=== PATIENT | female | born 2000 | race Caucasian/White ===

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

== ENCOUNTER → 2019-12-05 | Outpatient (CLI) | payer BC, SELFPAY ==
[2018-05-15 13:21] VITALS: BMI 24.0
[2019-12-05 19:00] LABS: Chlamydia Trachomatis by PCR Negative (Negative); Neisserai gonorrhoeae by PCR Negative (Negative); Probe Check PASS; Sample Adequacy Control PASS; Specimen Processing Control PASS
== END | disposition home or self-care (01) ==
PROVIDERS: PCP Family Medicine; Visit Provider Obstetrics & Gynecology
DX: Z32.01 Encounter for pregnancy test, result positive (principal)
CPT/HCPCS: 87491; 87591

== ENCOUNTER → 2019-12-26 10:12 | Outpatient (CLI) | payer MEDICAID, SELFPAY ==
[2018-05-15 13:21] VITALS: BMI 24.0
[2019-12-26 11:04] LABS: Absolute Lymphocyte Count 1.68 X10^3/uL (0.83-4.51); Absolute Neutrophil Count 5.3 X10^3/uL (2.0-7.7); Basophil# 0.02 X10^3/uL; Basophil% 0.3 % (0-1); Eosinophil# 0.01 X10^3/uL; Eosinophils% 0.1 % (0-5); Hematocrit 36.7 % (37-47); Hemoglobin 11.9 g/dL (12.0-15.0); Lymphocyte # 1.68 X10^3/ul (4.0); Lymphocyte % 22.1 % (19-41); Mean Corp Hgb Conc 32.4 g/dL (32-36); Mean Corpuscular Volume 89.3 fL (81-99); Mean Platelet Vol. 11.1 fl (6.2-12.0); Monocyte% 7.9 % (0-10); NRBC Flagged by Analyzer 0 % (0-5); Neutrophil # 5.28 X10^3/uL (2.7-7.7); Neutrophil % 69.3 % (47-70); Platelet Count 208 K/mm3 (150-450); RBC Distribution Width CV 13.2 % (11.6-14.6); RBC Distribution Width SD 42.7 fl (35.1-43.9); Red Blood Count 4.11 M/mm3 (4.2-5.4); White Blood Count 7.6 K/mm3 (4.4-11.0)
[2019-12-26 11:12] LABS: Color, Urine Yellow (Yellow); Glucose, Dipstick Normal (Normal); Ketone-Dipstick Negative (Negative); Leukocyte Esterase-Dipstick 25 /ul (Negative); Nitrite-Dipstick Negative (Negative); Occult Blood-Urine Negative /ul (Negative); Protein-Dipstick Negative (Negative); Specific Gravity, Urine 1.015 (1.002-1.030); Urine Bilirubin Dipstick Negative (Negative); Urine Clarity Sl. Cloudy (Clear); Urine Urobilinogen Normal (Normal); Urine pH 6.5 (5.0 - 8.0)
[2019-12-26 11:45] LABS: Amphetamine Urine VISTA NEGATIVE (<1000 ng/mL); Barbiturate Urine VISTA NEGATIVE (< 200 ng/mL); Benzodiazepine Urine VISTA NEGATIVE (< 200 ng/mL); Cocaine Urine VISTA NEGATIVE (< 300 ng/mL); Ecstacy Urine VISTA NEGATIVE (< 500 ng/mL); Methadone Urine VISTA NEGATIVE (< 300 ng/mL); PCP Urine VISTA NEGATIVE (< 25 ng/mL); THC Urine VISTA NEGATIVE (< 50 ng/mL); Vista UDS pH Range 6
[2019-12-26 11:48] LABS: Thyroid Stim Hormone (TSH) 1.42 uIU/mL (0.358-3.74)
[2019-12-26 12:17] LABS: HIV - WCH Non-Reactive (Nonreactive); Hepatitis B Surface Antigen Non-Reactive (Nonreactive); Hepatitis C Antibody Non-Reactive (Nonreactive)
[2019-12-27 03:25] LABS: Prenatal RPR NONREACTIVE (NONREACTIVE)
== END ==
PROVIDERS: PCP Family Medicine; Visit Provider Obstetrics & Gynecology
DX: Z34.81 Encounter for supervision of other normal pregnancy, first trimester (principal)
CPT/HCPCS: 36415; 80307; 81002; 84443; 85025; 86703; 86762; 86803; 87340

== ENCOUNTER → 2020-04-28 10:08 | Outpatient (CLI) | payer MEDICAID, SELFPAY ==
[2018-05-15 13:21] VITALS: BMI 24.0
[2020-04-28 11:05] LABS: Hemoglobin 11.9 g/dL (12.0-15.0); Mean Corp Hgb Conc 33.1 g/dL (32-36); Mean Corpuscular Hgb 29.3 pg (27.0-32.0); Mean Corpuscular Volume 88.7 fL (81-99); Platelet Count 214 K/mm3 (150-450); RBC Distribution Width SD 42.1 fl (35.1-43.9); Red Blood Count 4.06 M/mm3 (4.2-5.4); White Blood Count 9.5 K/mm3 (4.4-11.0)
[2020-04-28 11:20] LABS: Glucose Challenge Gest 1H 50g 105 mg/dL (70-140)
== END ==
PROVIDERS: PCP Family Medicine; Visit Provider Obstetrics & Gynecology
DX: Z00.00 Encounter for general adult medical examination without abnormal findings (principal)
CPT/HCPCS: 36415; 82950; 85027

== ENCOUNTER 2020-04-30 06:42 | Observation (INO) | payer BC, MEDICAID, SELFPAY ==
[2018-05-15 13:21] VITALS: BMI 24.0
[2020-04-30] VITALS (7 sets, daily range): BP systolic 111–126; BP diastolic 57–65; PULSE 79–87; TEMP 36.2–36.6; O2SAT 80–98; BMI 33.3
[2020-04-30 03:32] LABS: Color, Urine Yellow (Yellow); Glucose, Dipstick Normal (Normal); Ketone-Dipstick 50 mg/dl (Negative); Leukocyte Esterase-Dipstick 500 /ul (Negative); Nitrite-Dipstick Positive (Negative); Occult Blood-Urine 250 /ul (Negative); Protein-Dipstick 100 mg/dl (Negative); Specific Gravity, Urine 1.025 (1.002-1.030); Urine Bilirubin Dipstick Negative (Negative); Urine Clarity Cloudy (Clear); Urine Urobilinogen Normal (Normal)
[2020-04-30] MEDS: Lactated Ringers 1,000 ML 999 ML IV (04:15)
[2020-04-30 04:42] LABS: Absolute Lymphocyte Count 1.06 X10^3/uL (0.83-4.51); Absolute Neutrophil Count 14.8 X10^3/uL (2.0-7.7); Basophil# 0.01 X10^3/uL; Basophil% 0.1 % (0-1); Hematocrit 32.4 % (37-47); Lymphocyte # 1.06 X10^3/ul (4.0); Lymphocyte % 6.3 % (19-41); Mean Corpuscular Hgb 29.9 pg (27.0-32.0); Monocyte# 0.77 X10^3/uL; Monocyte% 4.6 % (0-10); NRBC Flagged by Analyzer 0 % (0-5); Neutrophil # 14.83 X10^3/uL (2.7-7.7); Neutrophil % 88.5 % (47-70); Platelet Count 200 K/mm3 (150-450); RBC Distribution Width CV 12.9 % (11.6-14.6); RBC Distribution Width SD 41.9 fl (35.1-43.9); Red Blood Count 3.68 M/mm3 (4.2-5.4); White Blood Count 16.8 K/mm3 (4.4-11.0)
[2020-04-30] MEDS: Acetaminophen 500 MG Tablet 1000 MG PO ×2 (05:25→15:48)
--- NOTE | 2020-04-30 06:42 | PCM.HPOB.BLA ---
History and Physical Date of Admission: 04/30/20 HPI: 19 yo , MIGUE 07/26/20 by LMP, admitted for pyelonephritis. Pt had originally come to triage for low back pain. She was found to have right CVA tenderness and +UA. Denies LOF, VB, contractions. +FM. Denies YANG, vision change, chest pain, dyspnea. This is complicated by: obesity Obstetrical History Past Medical History Denies Medications PNV Past Surgical History Denies Social History Tobacco use: Former Alcohol use: denies Illicit drug use: denies Labs Blood type: O Pos Rubella: Immune Hep B: Neg HIV: Neg RPR: nonreactive 1 hour GTT: wnl GBS: unk Allergies NKDA Review of Systems General: alert and oriented HEENT: denies change of vision Heart/lungs: denies CP, SOB GI: denies nausea, vomiting, dysuria, diarrhea MSK: denies calf pain, tenderness Physical Exam Vital Signs Pulse BP Pulse Ox 04/30/20 02:36 82 126/65 H 97 General: a&o x3, NAD HEENT: normocephalic, atraumatic Cardio: no JVD Resp: no increased work in breathing Abdomen: soft, gravid, nontender. Right CVA tenderness Extremities: no edema CE: deferred FHT: 150/mod destin/+accel/no decel [place]: quiet Labs Laboratory Results - last 24 hr 04/30/20 04/30/20 04/30/20 03:20 04:30 04:30 WBC 16.8 H RBC 3.68 L Hgb 11.0 L Hct 32.4 L MCV 88.0 MCH 29.9 MCHC 34.0 RDW Std Deviation 41.9 RDW Coeff of [place] 12.9 Plt Count 200 MPV 11.0 Immature Gran % (Auto) 0.500 Neut % (Auto) 88.5 H Lymph % (Auto) 6.3 L [place] % (Auto) 4.6 Eos % (Auto) 0.0 Baso % (Auto) 0.1 Absolute Neuts (auto) 14.8 H Absolute Lymphs (auto) 1.06 Nucleated RBC % 0 Urine Color Yellow Urine Clarity Cloudy Urine pH 6.0 Ur Specific [place] 1.025 Urine Protein 100 H Urine Glucose (UA) Normal Urine Ketones 50 H Urine Occult Blood 250 H Urine Nitrite Positive H Urine Bilirubin Negative Urine Urobilinogen Normal Ur Leukocyte Esterase 500 H Blood Type O POSITIVE Antibody Screen NEGATIVE Assessment & Plan 19 yo , MIGUE 07/26/20 by LMP, admitted for pyelonephritis. This is complicated by: obesity. Stable. -Pyelonephritis based on positive UA and CVA tenderness on exam. Slight leukocytosis as well. Patient has been afebrile. -Admit to labor and delivery -Rocephin 2gm q24 hours -Urine culture sent -IL LR bolus, then HLIV -NST q shift -Tylenol 1gm q6hr PRN pain Diet: Regular IVFs: HLIV DVT PPx: SCDs, ambulate Dispo: Home with oral medication once CVA tenderness resolved and/or 24 hours afebrile
[2020-05-01 00:03] VITALS: BP 108/57; PULSE 74; TEMP 36.2
[2020-05-01 04:26] VITALS: BP 103/51; PULSE 68
[2020-05-01 08:23] VITALS: BP 113/55; PULSE 71
--- NOTE | 2020-05-01 09:59 | PCM.PN.OB ---
Subjective: Back pain has improved. Patient overall feels much improved. Denies fevers, chills, nausea vomiting, chest pain, shortness of breath, headache, visual changes, right upper quadrant pain. - Physical Exam Vitals/I&O's: Vital Signs Temp Pulse BP Pulse Ox 97.2 F L 71 113/55 L 98 05/01/20 00:03 05/01/20 08:23 05/01/20 08:23 04/30/20 19:53 Weight: 213 lb Body Mass Index (BMI) 33.3 Intake and Output for Last 24 Hours 04/29/20 04/30/20 05/01/20 23:59 23:59 23:59 Intake Total 1050 / 1050 50 / 50 Balance 1050 / 1050 50 / 50 General: Alert, Oriented x3, Cooperative, No apparent distress, Well developed, Well nourished HEENT: Atraumatic, PERRLA Oral: Moist Mucosa Neck: Supple Lungs: Clear to auscultation, Normal air movement, No rhonchi, No wheeze, No rales Cardiovascular: Regular rate, Regular Rhythm, Normal S1, Normal S2, No murmurs Abdomen: Bowel Sounds Present, Soft, Non Tender, Gravid, - - Negative for CVA tenderness bilaterally Extremities: No clubbing, No cyanosis, No edema Lymphatic: No Cervical, Supraclavicular, or Inguinal Adenopathy Neurological: Neuro grossly intact Psych/Mental Status: Normal Affect, Appropriate, Alert and oriented to time, place, person, mood and affect Current Medications Al Hydroxide/Mg Hydroxide (Mag Hydrox/Al Hydrox/Simeth 30 Ml Udc) 30 ml PO Q4H PRN PRN PRN Reason: INDIGESTION Ceftriaxone Sodium 2 gm/ (Sodium Chloride) 50 mls @ 100 mls/hr IV Q24H CATARINO Last Infusion: 05/01/20 05:15 Dose: Infused Documented by: Sodium Chloride () 250 mls @ 15 mls/hr IV .[id number] PRN PRN Reason: Saline Flush Medical Necessity - Tobacco Use Smoking Status: Never smoker Assessment/Plan Hospital day 2 with pyelonephritis status post Rocephin 2 g daily. Patient symptoms improved, now asymptomatic. No CVA tenderness, no fevers or chills, vital signs stable. Will discharge home on p.o. Keflex. For Macrobid suppression therapy through the rest of . Discussed signs and symptoms of UTI and pyelonephritis. Okay to discharge home today
--- NOTE | 2020-05-01 10:03 | DCINST_ITS ---
You will use the following diet at home:: No restrictions, Regular Discharge Activity: Return to Normal Activity, No Restrictions, May Drive, May Shower May resume sexual activity in: No Restrictions Weight Bearing Status: Weight bearing as tolerated Call your doctor if your incision/area has: Foul Smelling Discharge Call your doctor if you observe: Fever of 101 or Higher, Shortness of breath, Chest pain Allergies/Adverse Reactions: Allergies No Known Allergies Allergy (Verified 05/15/18 13:21) Medications to take at Discharge Prenatabs FA 1 tab PO DAILY 04/30/20 Cephalexin [Keflex] 500 mg PO Q6 7 Days #28 cap 05/01/20 Nitrofurantoin Macrocrystals [Macrobid] 100 mg PO DAILY #30 cap 05/01/20 The following prescriptions were given: Cephalexin [Keflex] 500 mg PO Q6 7 Days #28 cap Transmission Status: Pending to [facility] Nitrofurantoin Macrocrystals [Macrobid] 100 mg PO DAILY #30 cap Transmission Status: Pending to [facility] Primary Care Physician: Eleazar Atwood MD [Primary Care Provider] - Test Results: Test results from this visit will be discussed in further detail at your follow- up appointment, if applicable. Please Follow Up With: Clyde Sinclair MD - Or follow-up with the provider she would like in our office When: 1 to 2 weeks
== END 2020-05-01 10:30 | disposition home or self-care (01) ==
LOC: WPOUT 09:57 → WP 09:57
PROVIDERS: Admitting Provider Student in an Organized Health Care Education/Training Program; PCP Family Medicine; Visit Provider Student in an Organized Health Care Education/Training Program
DX: O23.00 Infections of kidney in pregnancy, unspecified trimester (principal); Z3A.00 Weeks of gestation of pregnancy not specified; O99.210 Obesity complicating pregnancy, unspecified trimester; E66.9 Obesity, unspecified
CPT/HCPCS: 96361; 96365; 96366; 36415; 59025; 59050; 81002; 85025; 86850; 86900; 86901; 87077; 87086; 87088; 87186; 99218; J7120; G0378; J0696

== ENCOUNTER 2020-05-22 02:31 | Outpatient (CLI) | payer BC, MEDICAID, SELFPAY ==
[2020-04-30 02:50] VITALS: BMI 33.3
[2020-05-22 02:51] VITALS: BMI 32.8
[2020-05-22 02:55] LABS: Color, Urine Yellow (Yellow); Glucose, Dipstick Normal (Normal); Ketone-Dipstick 50 mg/dl (Negative); Leukocyte Esterase-Dipstick 100 /ul (Negative); Nitrite-Dipstick Negative (Negative); Occult Blood-Urine 10 /ul (Negative); Protein-Dipstick 30 mg/dl (Negative); Specific Gravity, Urine 1.015 (1.002-1.030); Urine Bilirubin Dipstick Negative (Negative); Urine Clarity Sl. Cloudy (Clear); Urine Urobilinogen Normal (Normal); Urine pH 6.5 (5.0 - 8.0)
[2020-05-22 02:57] VITALS: BP 118/68; PULSE 88; TEMP 36.6; O2SAT 97
[2020-05-22 03:45] VITALS: PULSE 80; O2SAT 98
[2020-05-22 03:54] LABS: Absolute Lymphocyte Count 2.71 X10^3/uL (0.83-4.51); Basophil# 0.03 X10^3/uL; Basophil% 0.2 % (0-1); Eosinophil# 0.04 X10^3/uL; Eosinophils% 0.3 % (0-5); Hematocrit 34.6 % (37-47); Hemoglobin 11.6 g/dL (12.0-15.0); Lymphocyte # 2.71 X10^3/ul (4.0); Lymphocyte % 18.1 % (19-41); Mean Corp Hgb Conc 33.5 g/dL (32-36); Mean Corpuscular Hgb 29.5 pg (27.0-32.0); Mean Platelet Vol. 11.4 fl (6.2-12.0); Monocyte% 7.4 % (0-10); NRBC Flagged by Analyzer 0 % (0-5); Neutrophil % 73.6 % (47-70); Platelet Count 194 K/mm3 (150-450); RBC Distribution Width CV 13.1 % (11.6-14.6); Red Blood Count 3.93 M/mm3 (4.2-5.4); White Blood Count 14.9 K/mm3 (4.4-11.0)
[2020-05-22 04:07] LABS: Creatinine, Serum 0.56 mg/dL (0.55-1.02); EST Glomerular Filtration Rate 145 mL/min (>60); Est Glom Filt Rate - Afr Amer 176 mL/min (>60)
[2020-05-22] MEDS: 0.9% Saline Lock 10 ML Syringe IV (04:12)
[2020-05-22] MEDS: Lactated Ringers 1,000 ML 125 ML IV (05:08)
[2020-05-22 07:28] VITALS: BP 113/60; PULSE 80; TEMP 36.7; O2SAT 97
--- NOTE | 2020-05-22 09:14 | OB.TRI.HP_ITS ---
History of Present Illness Date of Service: 05/22/20 Was patient seen by the physician?: Yes Reason For Visit: Right Flank Pain Date of Service: 05/22/20 Final MIGUE: 07/26/20 Final MIGUE Source: US <20 weeks Gestational age: 30 Weeks and 5 Days History of Present Illness: 30+ week intrauterine with right flank pain. Previously in the hospital for several days for right pyelonephritis and on daily Macrobid at home. Started having right flank pain today with some crampiness and presented to the hospital. Some blood noted in the urine. Allergies No Known Allergies Allergy (Verified 05/22/20 02:52) Laboratory Studies: Laboratory Tests 05/22/20 05/22/20 05/22/20 Range/Units 03:40 03:40 02:45 WBC 14.9 H (4.4-11.0) K/mm3 RBC 3.93 L (4.2-5.4) M/mm3 Hgb 11.6 L (12.0-15.0) g/dL Hct 34.6 L (37-47) % MCV 88.0 (81-99) fL MCH 29.5 (27.0-32.0) pg MCHC 33.5 (32-36) g/dL RDW Std Deviation 42.0 (35.1-43.9) fl RDW Coeff of [place] 13.1 (11.6-14.6) % Plt Count 194 (150-450) K/mm3 MPV 11.4 (6.2-12.0) fl Immature Gran % (Auto) 0.400 (0.0-0.9) % Neut % (Auto) 73.6 H (47-70) % Lymph % (Auto) 18.1 L (19-41) % [place] % (Auto) 7.4 (0-10) % Eos % (Auto) 0.3 (0-5) % Baso % (Auto) 0.2 (0-1) % Absolute Neuts (auto) 11.0 H (2.0-7.7) X10^3/uL Absolute Lymphs (auto) 2.71 (0.83-4.51) X10^3/uL Nucleated RBC % 0 (0-5) % Creatinine 0.56 (0.55-1.02) mg/dL Estim Creat Clear Calc 160.30 ml/min Est GFR (MDRD) Af Amer 176 (>60) mL/min Est GFR (MDRD) Non-Af 145 (>60) mL/min Urine Color Yellow (Yellow) Urine Clarity Sl. Cloudy (Clear) Urine pH 6.5 (5.0 - 8.0) Ur Specific [place] 1.015 (1.002-1.030) Urine Protein 30 H (Negative) mg/dl Urine Glucose (UA) Normal (Normal) mg/dl Urine Ketones 50 H (Negative) mg/dl Urine Occult Blood 10 H (Negative) /ul Urine Nitrite Negative (Negative) Urine Bilirubin Negative (Negative) mg/dL Urine Urobilinogen Normal (Normal) mg/dl Ur Leukocyte Esterase 100 H (Negative) /ul Physical Exam Vitals: Vital Signs Temp Pulse BP Pulse Ox 98.0 F 80 113/60 97 05/22/20 07:28 12 07:28 05/22/20 07:28 05/22/20 07:28 NST - FHR Rate Baby A NST Reactive:: Yes FHR Category:: Category I Impression/Plan 30+ week intrauterine with recurrent but early right pyelonephritis. Unasyn IV given overnight and pain has resolved. CBC okay but white count slightly elevated. However, no fevers. Given this will release to home on oral Keflex for 1 week and then continue Keflex until the end of daily. Patient was instructed to return with recurrent flank pain or contractions. heart tones are reactive and reassuring. Minimal uterine activity noted on the monitor. Follow-up in the office next Tuesday as scheduled.
== END 2020-05-22 09:47 | disposition home or self-care (01) ==
LOC: WPOUT 02:39 → WP 02:42
PROVIDERS: PCP Family Medicine; Referring Provider Obstetrics & Gynecology; Visit Provider Obstetrics & Gynecology
DX: O26.893 Other specified pregnancy related conditions, third trimester (principal); R10.9 Unspecified abdominal pain; Z3A.30 30 weeks gestation of pregnancy
CPT/HCPCS: 96365; 96366; 96375; 36415; 59025; 59050; 81002; 82565; 85025; 99218; J7120; A4216; G0378; J0295

== ENCOUNTER 2020-06-21 22:55 | Outpatient (CLI) | payer BC, MEDICAID, SELFPAY ==
[2020-06-21 23:05] VITALS: BMI 35.6
[2020-06-21 23:14] VITALS: BP 140/77; PULSE 100; TEMP 36.8; O2SAT 98
[2020-06-21 23:15] VITALS: PULSE 99; O2SAT 98
[2020-06-21 23:35] LABS: Mucous, Urine 0 SEEN /hpf (<or=2+)
[2020-06-21 23:53] LABS: Color, Urine Yellow (Yellow); Glucose, Dipstick 50 mg/dl (Normal); Ketone-Dipstick 5 mg/dl (Negative); Leukocyte Esterase-Dipstick 500 /ul (Negative); Nitrite-Dipstick Positive (Negative); Occult Blood-Urine 250 /ul (Negative); Protein-Dipstick 100 mg/dl (Negative); Urine Bilirubin Dipstick Negative (Negative); Urine Clarity Cloudy (Clear); Urine Urobilinogen Normal (Normal)
[2020-06-22 00:01] LABS: Bacteria 1+ /hpf (None Seen); Red Blood Cells-Urine 50-100 SEEN /hpf (0-5); Squamous Epithelial Cells - UA 0-5 SEEN /hpf (5-10); White Blood Cells 25-50 SEEN /hpf (0-5)
[2020-06-22] MEDS: Ceftriaxone 1 GM/50 ML BAG IV (00:27)
--- NOTE | 2020-06-26 08:52 | OB.TRI.NOTE ---
History of Present Illness Date of Service: 06/22/20 Was patient seen by the physician?: No Reason For Visit: R/O KIDNEY INFECTION Date of Service: 06/22/20 Final MIGUE: 07/26/20 Final MIGUE Source: US <20 weeks Gestational age: 35 Weeks and 5 Days Allergies No Known Allergies Allergy (Verified 06/21/20 23:08) Laboratory Studies: Laboratory Tests 06/21/20 Range/Units 23:30 Urine Color Yellow (Yellow) Urine Clarity Cloudy (Clear) Urine pH 6.0 (5.0 - 8.0) Ur Specific Metcalfe 1.020 (1.002-1.030) Urine Protein 100 H (Negative) mg/dl Urine Glucose (UA) 50 H (Normal) mg/dl Urine Ketones 5 H (Negative) mg/dl Urine Occult Blood 250 H (Negative) /ul Urine Nitrite Positive H (Negative) Urine Bilirubin Negative (Negative) mg/dL Urine Urobilinogen Normal (Normal) mg/dl Ur Leukocyte Esterase 500 H (Negative) /ul Urine RBC 50-100 SEEN (0-5) /hpf Urine WBC 25-50 SEEN (0-5) /hpf Ur Squamous Epith Cells 0-5 SEEN (5-10) /hpf Urine Bacteria 1+ (None Seen) /hpf Urine Mucus 0 SEEN (<or=2+) /hpf Physical Exam Vitals: Vital Signs Temp Pulse BP Pulse Ox 98.2 F 99 140/77 H 98 06/21/20 23:14 06/21/20 23:15 06/21/20 23:14 06/21/20 23:15 NST - FHR Rate Baby A Baseline: 130 Variability:: Moderate Accelerations:: 15 x 15 Decelerations:: None NST Reactive:: Yes Uterine Activity:: few contractions Impression/Plan Patient arrives with back pain, history of pyelonephritis in this . Afebrile, UA appears positive for UTI. Based on the overall stability will treat with Rocephin IV and outpatient Keflex treatment with Macrobid suppression. To discharge home and follow-up in office, send urine culture for sensitivities.
== END 2020-06-22 01:10 | disposition home or self-care (01) ==
LOC: WPOUT 23:03 → WP 23:04
PROVIDERS: PCP Family Medicine; Visit Provider Obstetrics & Gynecology
DX: O23.43 Unspecified infection of urinary tract in pregnancy, third trimester (principal); M54.9 Dorsalgia, unspecified; Z3A.35 35 weeks gestation of pregnancy
CPT/HCPCS: 96365; 59025; 59050; 81001; 87077; 87086; 87088; 87186; 99218; G0378

== ENCOUNTER → 2020-07-02 16:03 | Outpatient (CLI) | payer BC, MEDICAID, SELFPAY ==
[2020-06-21 23:05] VITALS: BMI 35.6
== END ==
PROVIDERS: PCP Family Medicine; Visit Provider Obstetrics & Gynecology
DX: Z36.85 Encounter for antenatal screening for Streptococcus B (principal)
CPT/HCPCS: 87081

== ENCOUNTER 2020-07-26 21:25 | Outpatient (CLI) | payer BC, MEDICAID, SELFPAY ==
[2020-07-26 21:48] VITALS: BP 132/83; PULSE 81; PULSE 87; TEMP 36.7; O2SAT 98
[2020-07-26 22:06] VITALS: BMI 37.3
[2020-07-26 22:19] LABS: ROM Internal Control Test YES-OK TO RESULT pt. (Internal QC); ROM Patient Test Negative (Negative)
--- NOTE | 2020-07-26 23:05 | OB.TRI.NOTE ---
- Problem List (1) 40 weeks gestation of Status: Acute (2) False labor Status: Acute History of Present Illness Date of Service: 07/26/20 Was patient seen by the physician?: No Reason For Visit: RULE OUT LABOR Final MIGUE: 07/26/20 Final MIGUE Source: US <20 weeks Gestational age: 40 Weeks and 0 Days History of Present Illness: 20yo G1 @ 40wga with c/o contractions and leaking of fluid. Allergies No Known Allergies Allergy (Verified 07/26/20 22:07) Laboratory Studies: Laboratory Tests 07/26/20 Range/Units 21:55 Vag Amniotic Fld Detect Negative (Negative) Physical Exam Vitals: Vital Signs Temp Pulse BP Pulse Ox 98.0 F 87 132/83 H 98 07/26/20 21:48 07/26/20 21:48 07/26/20 21:48 07/26/20 21:48 Cervix Dilation (cm): 2 - per RN exam Eligio Sanz Station: -3 Effacement (%): 50 NST - FHR Rate Baby A Baseline: 130 Variability:: Moderate Accelerations:: 15 x 15 Decelerations:: None NST Reactive:: Yes FHR Category:: Category I Uterine Activity:: 1-2/ Impression/Plan 20yo G1 @ 40wga, Cat I FHR -Cervix non laboring and ROM plus neg -d/c home -f/u next week as scheduled
== END 2020-07-26 22:50 | disposition home or self-care (01) ==
LOC: WPOUT 21:36 → WP 21:37
PROVIDERS: PCP Family Medicine; Visit Provider Obstetrics & Gynecology
DX: O47.1 False labor at or after 37 completed weeks of gestation (principal); Z3A.40 40 weeks gestation of pregnancy
CPT/HCPCS: 59025; 59050; 84112; 99218; G0378

== ENCOUNTER 2020-07-27 13:20 | Inpatient (IN) | payer BC, MEDICAID, SELFPAY ==
[2020-07-26 22:06] VITALS: BMI 37.3
[2020-07-27] VITALS (26 sets, daily range): BP systolic 113–138; BP diastolic 54–95; PULSE 73–111; TEMP 36.2–37.1; O2SAT 90–99; BMI 36.9
[2020-07-27 13:31] LABS: ROM Internal Control Test YES-OK TO RESULT pt. (Internal QC); ROM Patient Test POSITIVE (Negative)
--- NOTE | 2020-07-27 14:06 | PCM.HP.OB ---
- Problem List (1) Rupture of membranes with clear amniotic fluid Status: Acute (2) 40 weeks gestation of Status: Acute History Date of Admission: 04/30/20 Final MIGUE: 07/26/20 Final MIGUE Source: US <20 weeks Gestational age: 40 Weeks and 1 Days History of this : This is a 20 year-old, G [1], P [], at 40 1/7 weeks gestational age by LMP c/w first trimester US presents with leaking of fluid. issues: -hx back injury in 2016 -Pyelonephritis at 28wga - on Keflex ppx Medical History: Medical History (Last Updated 07/27/20 @ 14:[address] Cortney Sanford MD) Pyelonephritis N12 Allergies No Known Allergies Allergy (Verified 07/27/20 13:12) Home Medications: Home Medications Prenatabs FA 1 tab PO DAILY 04/30/20 Cephalexin [Keflex] 500 mg PO 07/27/20 Smoking Status: Former smoker Alcohol: None Number of Fetus(es): 1 NST - FHR Rate Baby A Baseline: 140 Accelerations:: 15 x 15 Decelerations:: None NST Reactive:: Yes FHR Category:: Category I Uterine Activity:: 2-3/10 History Past Pregnancies: Past Pregnancies Delivery Date Name GA/ Weeks Outcome Route Wt Sex Labor Length Anesthesia Delivery Location Provider FOB Labs: Antepartum Flow Sheet Highlights: [facility] Jul 14 39 234 128/80 tr - 38 V 2+ 65 -2 CM Jul 14 38 229 128/72 - - 38 V [facility] Jun 13 37 229 108/62 - - 37 [facility] Jun 13 36 226 126/80 tr ne 36 V ft 50 -2 [facility] Jun 14 34 222 128/70 tr ne 34 [facility] May 14 32 220 116/68 - - 32 May 14 30 216 104/70 tr - 30 - W Mar 17 23 210 110/80 tr - 24 W Feb 14 19 206 120/60 - - 20 [facility] Feb 4 16 202 106/64 tr - [facility] Jan 3 13 198 110/80 [facility] Dec 14 9 199 110/74 tr - Mom's Microbiology 07/27/20 14:20 Mucosa - Nose SARS-CoV-2 Antigen (Rapid) - Final Mom's Problem List Problem Status Onset Code 40 weeks gestation of Acute Z3A.40 Rupture of membranes with clear amniotic fluid Acute Mom's Labs & Results 07/27/20 07/27/20 07/27/20 13:10 14:15 14:15 WBC 12.7 H RBC 4.20 Hgb 12.1 Hct 35.7 L MCV 85.0 MCH 28.8 MCHC 33.9 RDW Std Deviation 41.6 RDW Coeff of Destin 13.3 Plt Count 201 MPV 11.4 Immature Gran % (Auto) 0.500 Neut % (Auto) 80.1 H Lymph % (Auto) 13.0 L Mcpherson % (Auto) 6.3 Eos % (Auto) 0.0 Baso % (Auto) 0.1 Absolute Neuts (auto) 10.2 H Absolute Lymphs (auto) 1.65 Nucleated RBC % 0 Vag Amniotic Fld Detect POSITIVE H Blood Type O POSITIVE Antibody Screen NEGATIVE Course Did the patient receive Yes care? Labs Blood Type: O RH: POSITIVE RPR/VDRL/Syphilis Nonreactive Rubella status Immune HbSAg Negative Date Done: 12/26/19 Chlamydia Negative Gonorrhea Negative HIV/AIDS Non-Reactive Group B Strep: Negative Current Obstetrical History Gestational Diabetes No Incompetent Cervix No Infertility No IUGR No Macrosomia No Hypertension/Pre-eclampsia No Placenta Previa/Abruption No PTL/PROM No Uterine anomaly No Oligohydramnios No Polyhydramnios No Multiple gestation No Past Medical History Asthma No Diabetes No Hypertension No Heart disease No Mitral valve prolapse No Neurologic/Seizure disorder/ No Migraines Kidney disease No Liver disease No Varicosities No Clotting disorders/Hx of DVT No Thyroid Dysfunction No Other medical diseases No Psychiatric disorders No Major trauma No Abnormal PAP smear No Sleep apnea No Mammogram in the last 2 years No Social History Marital Status: SINGLE Alleged father Ricardo Rogers Hx Smoking Yes Smoking Status Former smoker Expected Delivery Method: Spontaneous Vaginal Number of Visits: 12 Physical Exam Vitals: Vital Signs Temp Pulse BP Pulse Ox 98.4 F 92 136/76 H 98 07/27/20 13:24 07/27/20 13:25 07/27/20 13:25 07/27/20 13:25 General: Alert, Oriented x3, Cooperative, No apparent distress HEENT: Atraumatic, Normocephalic Cardiovascular: Regular rate, Regular Rhythm, Normal S1, Normal S2 Lungs: Clear to auscultation, Normal air movement Abdomen: Soft, Non Tender, Non-Distended, Gravid Extremities:: Other - trace LE edeam, no calf tenderness Neurological: Neuro grossly intact Estimated gestational size: Appropriate for gestational size Presentation: - - US - cephalic, OA, back maternal right Cervix Dilation (cm): 2 Station: -3 Effacement (%): 65 - per RN exam Assessment/Plan All Active Problems (Last Updated 07/27/20 @ 14:[address] Cortney Sanford MD) 40 weeks gestation of (Acute) Rupture of membranes with clear amniotic fluid (Acute) This is a 20 year-old, G [1], P [], at 40 1/7 weeks gestational age with SROM, Cat I FHR -Expectant management -GBS neg -Maternal and statuses reassuring
[2020-07-27] MEDS: Lactated Ringers 1,000 ML 50 ML IV (14:15)
[2020-07-27 14:28] LABS: Absolute Lymphocyte Count 1.65 X10^3/uL (0.83-4.51); Absolute Neutrophil Count 10.2 X10^3/uL (2.0-7.7); Basophil# 0.01 X10^3/uL; Basophil% 0.1 % (0-1); Hematocrit 35.7 % (37-47); Hemoglobin 12.1 g/dL (12.0-15.0); Lymphocyte # 1.65 X10^3/ul (4.0); Mean Corp Hgb Conc 33.9 g/dL (32-36); Mean Corpuscular Hgb 28.8 pg (27.0-32.0); Mean Platelet Vol. 11.4 fl (6.2-12.0); Monocyte% 6.3 % (0-10); NRBC Flagged by Analyzer 0 % (0-5); Neutrophil # 10.19 X10^3/uL (2.7-7.7); Neutrophil % 80.1 % (47-70); Platelet Count 201 K/mm3 (150-450); RBC Distribution Width CV 13.3 % (11.6-14.6); RBC Distribution Width SD 41.6 fl (35.1-43.9); White Blood Count 12.7 K/mm3 (4.4-11.0)
[2020-07-27] MEDS: Oxytocin 30 units/NS 500 ml 30 UNITS/500 ML IV.SOLN IV (16:38)
[2020-07-27] MEDS: Lactated Ringers 500 ML 999 ML IV ×2 (19:14→23:42)
[2020-07-27] MEDS: fentaNYL-bupivacaine (epidural) 100 ML BAG EPIDURAL ×2 (19:39→23:22)
[2020-07-27] MEDS: Lactated Ringers 1,000 ML 200 ML IV (23:21)
[2020-07-28] VITALS (29 sets, daily range): BP systolic 100–136; BP diastolic 52–89; PULSE 64–120; RESP 14–20; TEMP 36.2–37.2; O2SAT 95–100
[2020-07-28] MEDS: Lactated Ringers 500 ML 999 ML IV (01:34)
[2020-07-28] MEDS: Ondansetron 4 MG/2 ML Vial IV (01:51)
[2020-07-28] MEDS: fentaNYL-bupivacaine (epidural) 100 ML BAG EPIDURAL (04:13)
[2020-07-28] MEDS: Lactated Ringers 1,000 ML 200 ML IV (04:14)
--- NOTE | 2020-07-28 04:38 | PCM.PN.BLA ---
Progress Note LABOR PROGRESS NOTE Reports frustration with pushing and feels that she can't do to this any longer. She has not been able to maintain alternative positioning due to fatigue despite nursing support. She has intermittent pain in the back with contractions. Per nursing staff is refusing to push. AVSS GEN - NAD, AAO x 3 FHR 150, minimal variability, no accelerations, no decelerations TOCO 3/10 min SVE deferred A/P: 20yo G1 @ 40 2/7 wga, Cat II FHR -Discussed with patient repeat epidural placement to assist with her painfulness. Have attempted positional maneuvers as well as comfort measures - pt with improved pain in hands and knees but unable to tolerate positioning due to fatigue. Also offered section as alternative. Pt aware however that she does not meet medical indication for section. We discussed related risks including but not limited to pain, bleeding complications, infection, injury to abdominal organs, VTE, scarring, uterine scarring resulting in increased risk for uterine rupture and placenta accreta d/o in future with associated heightened risk for bleeding and hysterectomy. We discussed section anesthesia as well. I recommended she consider having the epidural replaced, however, she declines and desires surgical delivery. Will proceed with section. Pt and partner given opportunity to ask questions and questions answered to their satisfaction. STROKE Vital Signs/Narrative: Vital Signs Temp Pulse BP Pulse Ox 07/28/20 03:46 98.8 F 64 131/62 H 07/28/20 02:52 120 H 98 07/28/20 02:47 92 98 07/28/20 02:42 87 98 07/28/20 02:37 87 98 07/28/20 02:32 98 96 07/28/20 02:27 89 100 07/28/20 02:11 98.6 F 99 133/89 H 07/28/20 00:50 98.6 F 104 H 100 07/28/20 00:49 129/85 H
[2020-07-28] MEDS: Sodium Citrate/Citric Acid 30 ML UDC PO (04:48)
[2020-07-28] MEDS: Cefazolin 2 GM in 0.9% Normal Saline 100 ML IV (05:02)
--- NOTE | 2020-07-28 06:27 | PCM.OPRPT ---
Problem List (1) 40 weeks gestation of Status: Acute (2) delivery delivered Status: Acute Report of Operation Date of Procedure: 07/28/20 Pre-Operative Diagnosis: 1. 40 2/7 weeks gestation. 2. Second stage labor with maternal exhaustion. 3. Prolonged rupture of membranes Post-Operative Diagnosis: same Surgery/Procedure Performed:: Primary low transverse section Description of Surgical Findings:: normal bilateral tubes and ovaries, uterus normal Delivery Classification: HELENA Final MIGUE: 07/26/20 Gestational age: 40 Weeks and 2 Days doctor who attended delivery (if requested by OB): Tho Perez skein tier: Gregory Flower Type of Anesthesia:: Epidural Date of Procedure: 07/28/20 Indications: 20yo G1 @ 40 2/7 weeks gestational age who presented the previous day with rupture of membranes in latent labor. She was later augmented with pitocin and progressed to fully dilated and zero station. She pushed with good maternal effort however reports severe back pain despite epidural and redosing. She had pushed approximately 2 hours in all and reported maternal exhaustion requesting section. She declined epidural replacement. r/b/i/a were reviewed and patient opted to proceed with section. Indications for : - - Maternal exhaustion/Maternal request Description of Procedure: The patient was taken to the operating room and spinal analgesia was administered. She is placed in a dorsal supine position with left lateral tilt. The perineum and abdomen were prepped and draped in sterile fashion. And the spinal was found to be adequate. A Pfannenstiel incision was made using a scalpel and brought down to incise the subcutaneous tissue and rectus fascia at the midline. Subcutaneous tissue was bluntly dissected off the fascia laterally. The fascial incision was dissected laterally and cephalad using curved Suresh scissors. The superior leaflet of the rectus fascia was grasped using Nataly clamps and bluntly dissected and sharply dissected from the underlying rectus muscle. In a similar fashion the inferior rectus fascia was dissected from the underlying muscle. The rectus muscles were bluntly at the midline. The peritoneum was identified and entered [sharply]. The bladder blade was placed into the abdomen and the vesicouterine peritoneal fold identified. The fold was incised and a bladder flap created. Bladder blade was then repositioned to the abdomen. A low transverse hysterotomy was made using the [Metzenbaum scissors] to level of the membranes. The hysterotomy was extended bluntly cephalad and caudad. The membranes were then ruptured revealing meconium stained fluid. The head was impacted. Assistance from below was performed and the head elevated and brought to the level of the hysterotomy. The infant delivered revealing a [female] . The cord was doubly clamped and cut after 30 seconds. The was passed to awaiting [nursery personnel]. The placenta was [expressed] from the uterus and appeared intact on inspection. The uterus was exteriorized and cleared of debris. The hysterotomy was then repaired using 0 Vicryl running lock suture including a right extension abutting the round ligament. A second imbricating layer was also placed for additional hemostasis. Additional sutures were placed to close the extension with hemostasis attained. The bladder blade was removed. The anterior and posterior cul-de-sac was cleared of debris. The peritoneum and rectus muscles were reapproximated using 2-0 Vicryl running suture. The rectus fascia was closed using 0 Stratafix. The subcutaneous tissue was reapproximated using 2-0 Vicryl. The skin was closed using 4-0 Monocryl subcuticularly by the TELEHEALTH COORDINATOR under my supervision. A Mepilex occlusive dressing was placed over the incision. The fundus was firm. The patient was then transferred to the recovery room without complication. Sponge, instrument, and needle counts were correct ?2. Amniotic Membrane Rupture Type: Spontaneous Amniotic Fluid Description: Lightly stained meconium Placenta Disposition: [facility] Drain: Shields to straight drain Fluids Replaced: 1000 ml Cord Entanglement: None Nuchal Cord Compression: Without compression Cord Vessel Description: 3 Vessels Esitmated Blood Loss (ml): 995 Infant Gender: Female (1 minute): 7 (5 minute): 9 Delayed cord clamping: No Antibiotic Given: Ancef 2 grams IV x1, Zithromax 500 mg/5 mL X1 Pt instructed on risks of surgery: Bleeding, Anesthesia Risks, Infection, Injury to surrounding structure(s) including bowel and bladder Complications: - - Right Lateral extension of hysterotomy - Admit VTE Documentation VTE Present on Admission: No VTE Mechan Device Prophylaxis: SCD's VTE Pharm Prophylaxis ordered?: Yes
[2020-07-28] MEDS: Oxytocin 30 units/NS 500 ml 30 UNITS/500 ML IV.SOLN 167 UNITS IV (06:56)
[2020-07-28] MEDS: Lactated Ringers 1,000 ML 100 ML IV (10:06)
[2020-07-28] MEDS: Acetaminophen 500 MG Tablet 1000 MG PO ×2 (10:53→18:39)
[2020-07-28] MEDS: Senna/Docusate Sodium 1 Tablet PO (10:53)
[2020-07-28] MEDS: Heparin Injection (Vial) 5,000 UNIT/ML VIAL 5000 UNIT SC (12:12)
[2020-07-28] MEDS: Prenatal Vits Tablet 1 TABLET PO (12:12)
[2020-07-28] MEDS: Ketorolac 30 MG/ML Syringe IV ×2 (13:10→18:40)
[2020-07-28] MEDS: 0.9% Saline Lock 10 ML Syringe IV ×2 (13:11→18:41)
[2020-07-29] MEDS: 0.9% Saline Lock 10 ML Syringe IV ×2 (00:48→06:48)
[2020-07-29] MEDS: Heparin Injection (Vial) 5,000 UNIT/ML VIAL 5000 UNIT SC ×3 (00:48→23:37)
[2020-07-29] MEDS: Ketorolac 30 MG/ML Syringe IV ×2 (00:48→06:48)
[2020-07-29] MEDS: Acetaminophen 500 MG Tablet 1000 MG PO ×3 (02:38→18:33)
[2020-07-29 04:23] VITALS: BP 111/56; PULSE 88; RESP 16; TEMP 36.4
--- NOTE | 2020-07-29 04:29 | NURSING ---
Patient has been unable to void more than 25-50ml at a time overnight for this RN. Did void once earlier, but patient has denied feeling like she needs to urinate. Bladder was mildly distended upon last belly check. Decided to bladder scan patient for a result of 250ml. Patient states she doesn't feel like she is going to be able to void on own and agreed to straight catheterization at this time. Straight cath'd patient for result of 500ml. Encouraged patient to increase PO intake and try to void on own in 2-3 hours.
[2020-07-29 05:32] LABS: Hematocrit 28.5 % (37-47); Hemoglobin 9.6 g/dL (12.0-15.0); Mean Corp Hgb Conc 33.7 g/dL (32-36); Mean Corpuscular Volume 86.1 fL (81-99); Mean Platelet Vol. 10.7 fl (6.2-12.0); Platelet Count 156 K/mm3 (150-450); RBC Distribution Width CV 13.9 % (11.6-14.6); RBC Distribution Width SD 43.8 fl (35.1-43.9); Red Blood Count 3.31 M/mm3 (4.2-5.4); White Blood Count 17.6 K/mm3 (4.4-11.0)
--- NOTE | 2020-07-29 08:05 | PCM.PN.OB ---
Patient Problems: Active and Suspected Problems (Last Updated 07/27/20 @ 14:[address] Cortney Sanford MD) delivery delivered (Acute) 40 weeks gestation of (Acute) Rupture of membranes with clear amniotic fluid (Acute) Subjective: Postop day 1: Feeling well, pain controlled with medication. Breast-feeding. Voided minimally once after removal of catheter, was straight cathed x1 overnight. - Physical Exam Vitals/I&O's: Vital Signs Temp Pulse Resp BP Pulse Ox 97.6 F L 88 16 111/56 L 97 07/29/20 04:23 07/29/20 04:23 07/29/20 04:23 07/29/20 04:23 07/28/20 20:38 Oxygen Delivery Method Room Air Weight: 107.048 kg Body Mass Index (BMI) 36.9 Intake and Output for Last 24 Hours 07/27/20 07/28/20 07/29/20 23:59 23:59 23:59 Intake Total 1571.87 / 1571.87 4838.33 / 4838.33 Output Total 2375 / 2375 525 / 525 Balance 1571.87 / 1571.87 2463.33 / 2463.33 -525 / -525 General: Alert, Oriented x3, No apparent distress HEENT: Atraumatic, Normocephalic Neck: Supple Lungs: Normal air movement Cardiovascular: Regular rate Abdomen: Soft - Dressing clean dry, uterus 2 cm below umbilicus Extremities: Edema - +2 pedal edema Neurological: Cranial nerves II-XII grossly intact Psych/Mental Status: Normal Affect, Appropriate Microbiology Past 72 Hours 07/27/20 14:20 Mucosa - Nose SARS-CoV-2 Antigen (Rapid) - Final Laboratory Results 07/29/20 05:25: WBC 17.6 H, RBC 3.31 L, Hgb 9.6 L, Hct 28.5 L, MCV 86.1, MCH 29.0, MCHC 33.7, RDW Std Deviation 43.8, RDW Coeff of Destin 13.9, Plt Count 156, MPV 10.7 Current Medications Acetaminophen (Acetaminophen 500 Mg Tablet) 1,000 mg PO Q8H [facility] Last Admin: 07/29/20 02:38 Dose: 1,000 mg Documented by: Bisacodyl (Bisacodyl 10 Mg Suppository) 10 mg RECTAL UD PRN PRN Reason: If no BM Heparin Sodium (Porcine) (Heparin Injection (Vial) 5,000 Unit/Ml Vial) 5,000 unit SC Q12@0000,1200 [facility] Last Admin: 07/29/20 00:48 Dose: 5,000 unit Documented by: Hydrocortisone (Hydrocortisone 2.5% Crm) 1 applic TOPICAL TID PRN PRN; Protocol PRN Reason: Discomfort Ibuprofen (Ibuprofen 600 Mg Tablet) 600 mg PO Q6H [facility] Methylergonovine Maleate (Methylergonovine 0.2 Mg/Ml Ampul) 0.2 mg IM X1 PRN PRN Reason: Uterine Atony Naloxone HCl (Naloxone 0.4 Mg/Ml Syringe) 0.02 mg IV Q1M PRN PRN Reason: RR <10 and pt unresponsive Ondansetron HCl (Ondansetron 4 Mg/2 Ml Vial) 4 mg IV Q4H PRN PRN PRN Reason: Nausea Oxycodone HCl (Oxycodone 5 Mg Tablet) 5 - 10 mg PO Q4H PRN PRN PRN Reason: Pain Score 4-10 Multivit/Folic Acid/Iron ( Vits Tablet) 1 tablet PO DAILY@1200 [facility] Last Admin: 07/28/20 12:12 Dose: 1 tablet Documented by: Prochlorperazine Edisylate (Prochlorperazine 10 Mg/2 Ml Vial) 10 mg IV Q6H PRN PRN PRN Reason: NAUSEA Senna/Docusate Sodium (Senna/Docusate Sodium 1 Tablet) 0 tablet PO DAILY [facility] Last Admin: 07/28/20 10:53 Dose: 1 tablet Documented by: Simethicone (Simethicone 80 Mg Tablet) 80 mg PO HS PRN PRN Reason: Indigestion/stomach pain Sodium Chloride (0.9% Saline Lock 10 Ml Syringe) 5 - 15 ml IV UD PRN PRN Reason: SALINE FLUSH Last Admin: 07/29/20 06:48 Dose: 10 ml Documented by: Medical Necessity - Tobacco Use Smoking Status: Former smoker Assessment/Plan All Active Problems (Last Updated 07/27/20 @ 14:[address] Cortney Sanford MD) delivery delivered (Acute) 40 weeks gestation of (Acute) Rupture of membranes with clear amniotic fluid (Acute) 20-year-old postop day 1 status post primary section, elective maternal exhaustion. Acute blood loss anemia secondary to surgery. Iron supplement at home. Breast-feeding. Monitor voiding today. Likely home tomorrow.
[2020-07-29 08:09] VITALS: BP 124/74; PULSE 96; RESP 18; TEMP 36.3; O2SAT 98
[2020-07-29] MEDS: Senna/Docusate Sodium 1 Tablet PO (10:12)
[2020-07-29] MEDS: Ibuprofen 600 MG Tablet PO ×2 (12:29→18:34)
[2020-07-29] MEDS: Prenatal Vits Tablet 1 TABLET PO (12:29)
[2020-07-29 14:55] VITALS: BP 114/68; PULSE 85; RESP 16; O2SAT 96
[2020-07-29 21:16] VITALS: BP 122/74; PULSE 80; RESP 16; TEMP 36.2; O2SAT 97
[2020-07-30] MEDS: Acetaminophen 500 MG Tablet 1000 MG PO (02:39)
[2020-07-30] MEDS: Ibuprofen 600 MG Tablet PO ×2 (02:40→08:20)
[2020-07-30 02:41] VITALS: BP 140/81; PULSE 103; RESP 16; TEMP 37.4
[2020-07-30] MEDS: Senna/Docusate Sodium 1 Tablet PO (08:20)
[2020-07-30 08:23] VITALS: BP 109/61; PULSE 85; RESP 16; TEMP 36.3; O2SAT 97
--- NOTE | 2020-07-30 09:10 | PCM.PN.OB ---
Patient Problems: Active and Suspected Problems (Last Updated 07/27/20 @ 14:[address] Cortney Sanford MD) delivery delivered (Acute) 40 weeks gestation of (Acute) Rupture of membranes with clear amniotic fluid (Acute) Subjective: Patient without complaints. Tolerating diet well. Positive flatus. Ready to go home. Objective: Wound is clean, dry, intact with Mepilex dressing in place. Good urine output. - Physical Exam Vitals/I&O's: Vital Signs Temp Pulse Resp BP Pulse Ox 97.4 F L 85 16 109/61 97 07/30/20 08:23 07/30/20 08:23 07/30/20 08:23 07/30/20 08:23 07/30/20 08:23 Oxygen Delivery Method Room Air Weight: 236 lb Body Mass Index (BMI) 36.9 Intake and Output for Last 24 Hours 07/28/20 07/29/20 07/30/20 23:59 23:59 23:59 Intake Total 4838.33 / 4838.33 Output Total 2375 / 2375 1225 / 1225 Balance 2463.33 / 2463.33 -1225 / -1225 Microbiology Past 72 Hours 07/27/20 14:20 Mucosa - Nose SARS-CoV-2 Antigen (Rapid) - Final Current Medications Acetaminophen (Acetaminophen 500 Mg Tablet) 1,000 mg PO Q8H [facility] Last Admin: 07/30/20 02:39 Dose: 1,000 mg Documented by: Bisacodyl (Bisacodyl 10 Mg Suppository) 10 mg RECTAL UD PRN PRN Reason: If no BM Heparin Sodium (Porcine) (Heparin Injection (Vial) 5,000 Unit/Ml Vial) 5,000 unit SC Q12@0000,1200 [facility] Last Admin: 07/29/20 23:37 Dose: 5,000 unit Documented by: Hydrocortisone (Hydrocortisone 2.5% Crm) 1 applic TOPICAL TID PRN PRN; Protocol PRN Reason: Discomfort Ibuprofen (Ibuprofen 600 Mg Tablet) 600 mg PO Q6H [facility] Last Admin: 07/30/20 08:20 Dose: 600 mg Documented by: Methylergonovine Maleate (Methylergonovine 0.2 Mg/Ml Ampul) 0.2 mg IM X1 PRN PRN Reason: Uterine Atony Naloxone HCl (Naloxone 0.4 Mg/Ml Syringe) 0.02 mg IV Q1M PRN PRN Reason: RR <10 and pt unresponsive Ondansetron HCl (Ondansetron 4 Mg/2 Ml Vial) 4 mg IV Q4H PRN PRN PRN Reason: Nausea Oxycodone HCl (Oxycodone 5 Mg Tablet) 5 - 10 mg PO Q4H PRN PRN PRN Reason: Pain Score 4-10 Multivit/Folic Acid/Iron ( Vits Tablet) 1 tablet PO DAILY@1200 [facility] Last Admin: 07/29/20 12:29 Dose: 1 tablet Documented by: Prochlorperazine Edisylate (Prochlorperazine 10 Mg/2 Ml Vial) 10 mg IV Q6H PRN PRN PRN Reason: NAUSEA Senna/Docusate Sodium (Senna/Docusate Sodium 1 Tablet) 0 tablet PO DAILY [facility] Last Admin: 07/30/20 08:20 Dose: 1 tablet Documented by: Simethicone (Simethicone 80 Mg Tablet) 80 mg PO HS PRN PRN Reason: Indigestion/stomach pain Sodium Chloride (0.9% Saline Lock 10 Ml Syringe) 5 - 15 ml IV UD PRN PRN Reason: SALINE FLUSH Last Admin: 07/29/20 06:48 Dose: 10 ml Documented by: Medical Necessity - Tobacco Use Smoking Status: Former smoker Assessment/Plan All Active Problems (Last Updated 07/27/20 @ 14:[address] Cortney Sanford MD) delivery delivered (Acute) 40 weeks gestation of (Acute) Rupture of membranes with clear amniotic fluid (Acute) Doing well postoperative day #2 status post section. Will release to home with routine instructions.
--- NOTE | 2020-07-30 09:12 | DS.PCM_ITS ---
Discharge Summary Date of Admission: 07/27/20 Date of Discharge: 07/30/20 Summary: Admission diagnosis: Term Intrauterine with Rupture of Membranes Discharge diagnosis: Term Intrauterine with Rupture Membranes, Failure to Progress Procedure: Primary Low Transverse Cervical Section HPI: Uneventful care except for pyelonephritis during . PE: Unremarkable. Hospital Course: The patient is a 20 year old G 1 P 0 who presented to and D at 40+ weeks gestation. She subsequently had a primary for failure to progress. Postoperatively she did well demonstrating a stable HGB on POD 1 and bowel fxn by POD 2 at which time it was felt she was ready for discharge. Homegoing Instruction: She was instructed not to drive for several days or if using narcotic pain medication, not to put anything in the vagina for 4 weeks, not to lift >25 lbs for 6 weeks and to call the office for an appointment in 2 weeks and 6 weeks. Discharge Medications: She was given a prescription for Oxycodone and Colace and also plans to use Aleve or Motrin or Tylenol at home as needed for pain and constipation. Patient Problems: Active and Suspected Problems (Last Updated 07/27/20 @ 14:[address] Cortney Sanford MD) delivery delivered (Acute) 40 weeks gestation of (Acute) Rupture of membranes with clear amniotic fluid (Acute) - Physical Exam Vitals/I&O's: Vital Signs Temp Pulse Resp BP Pulse Ox 97.4 F L 85 16 109/61 97 07/30/20 08:23 07/30/20 08:23 07/30/20 08:23 07/30/20 08:23 07/30/20 08:23 Oxygen Delivery Method Room Air Weight: 236 lb Body Mass Index (BMI) 36.9 Intake and Output for Last 24 Hours 07/28/20 07/29/20 07/30/20 23:59 23:59 23:59 Intake Total 4838.33 / 4838.33 Output Total 2375 / 2375 1225 / 1225 Balance 2463.33 / 2463.33 -1225 / -1225 Microbiology Past 72 Hours 07/27/20 14:20 Mucosa - Nose SARS-CoV-2 Antigen (Rapid) - Final Current Medications Acetaminophen (Acetaminophen 500 Mg Tablet) 1,000 mg PO Q8H CATARINO Last Admin: 07/30/20 02:39 Dose: 1,000 mg Documented by: Bisacodyl (Bisacodyl 10 Mg Suppository) 10 mg RECTAL UD PRN PRN Reason: If no BM Heparin Sodium (Porcine) (Heparin Injection (Vial) 5,000 Unit/Ml Vial) 5,000 unit SC Q12@0000,1200 COUNTS INCLUDE 234 BEDS AT THE [facility] Last Admin: 07/29/20 23:37 Dose: 5,000 unit Documented by: Hydrocortisone (Hydrocortisone 2.5% Crm) 1 applic TOPICAL TID PRN PRN; Protocol PRN Reason: Discomfort Ibuprofen (Ibuprofen 600 Mg Tablet) 600 mg PO Q6H COUNTS INCLUDE 234 BEDS AT THE [facility] Last Admin: 07/30/20 08:20 Dose: 600 mg Documented by: Methylergonovine Maleate (Methylergonovine 0.2 Mg/Ml Ampul) 0.2 mg IM X1 PRN PRN Reason: Uterine Atony Naloxone HCl (Naloxone 0.4 Mg/Ml Syringe) 0.02 mg IV Q1M PRN PRN Reason: RR <10 and pt unresponsive Ondansetron HCl (Ondansetron 4 Mg/2 Ml Vial) 4 mg IV Q4H PRN PRN PRN Reason: Nausea Oxycodone HCl (Oxycodone 5 Mg Tablet) 5 - 10 mg PO Q4H PRN PRN PRN Reason: Pain Score 4-10 Multivit/Folic Acid/Iron ( Vits Tablet) 1 tablet PO DAILY@1200 COUNTS INCLUDE 234 BEDS AT THE [facility] Last Admin: 07/29/20 12:29 Dose: 1 tablet Documented by: Prochlorperazine Edisylate (Prochlorperazine 10 Mg/2 Ml Vial) 10 mg IV Q6H PRN PRN PRN Reason: NAUSEA Senna/Docusate Sodium (Senna/Docusate Sodium 1 Tablet) 0 tablet PO DAILY COUNTS INCLUDE 234 BEDS AT THE [facility] Last Admin: 07/30/20 08:20 Dose: 1 tablet Documented by: Simethicone (Simethicone 80 Mg Tablet) 80 mg PO PCHS PRN PRN Reason: Indigestion/stomach pain Sodium Chloride (0.9% Saline Lock 10 Ml Syringe) 5 - 15 ml IV UD PRN PRN Reason: SALINE FLUSH Last Admin: 07/29/20 06:48 Dose: 10 ml Documented by:
--- NOTE | 2020-07-30 09:46 | DCINST_ITS ---
Discharge Diet: No Restrictions Discharge Activity: May not drive while taking narcotic pain medications., May Shower, May Take a Tub Bath May resume sexual activity in: 4-6 weeks Lifting Restrictions: 20 pounds Additional Activity Instructions:: Nothing in the vagina for 4-6 weeks. You may return to work/school in 6 weeks. Call your doctor if your incision/area has: Continuous Slow Oozing, Sudden Increased Bleeding, Increased Pain/ Swelling, Increased Redness, Foul Smelling Discharge Call your doctor if you observe: Fever of 101 or Higher, Inability to urinate, Inability to have a bowel movement, Using more than one pad per hour Additional Dressing/Incision Instructions:: Use Ibuprophen or Tylenol for breakthrough pain. Use stool softener as needed for constipation. Additional Instructions: If you experience any of the following, contact your healthcare provider. * Bleeding that soaks a pad every hour for 2 hours * Fever 100.4 or higher * Unrelieved incision or abdominal pain * Swelling, redness, discharge or bleeding from your incision or episiotomy site * Your incision begins to separate * Problems urinating (including inability to urinate or burning while urinating). * Visual changes * Severe headache * Flu-like symptoms * Pain or redness in one of both of your breasts * Pain, warmth, tenderness or swelling in your legs, especially the calf area * Frequent nausea and vomiting * Symptoms of depression or anxiety If you experience any of the following, call 911 or go to the nearest Emergency Room. * Chest pain * Problems breathing * Seizure activity * Partial or complete paralysis of a body part, slurred speech, weakness or drooping of the face, or a sudden inability to walk or hold your balance Allergies/Adverse Reactions: Allergies No Known Allergies Allergy (Verified 07/27/20 13:12) Medications to take at Discharge Prenatabs FA 1 tab PO DAILY 04/30/20 Follow-Up: Call to make an appointment with your doctor for an incision check in 1-2 weeks. You will also need a 6 week post- follow up appointment. Test results from this visit will be discussed in further detail at your follow- up appointment, if applicable. Please Follow Up With: Kenny Jones MD - [phone] When: Call to make an appointment for an incision check in 2 weeks. Primary Care Physician: Eleazar Atwood MD [Primary Care Provider] -
== END 2020-07-30 11:10 | disposition home or self-care (01) | DRG 788 ==
LOC: WPOUT 13:34 → WP 13:34
PROVIDERS: Admitting Provider Obstetrics & Gynecology; PCP Family Medicine; Referring Provider Obstetrics & Gynecology; Visit Provider Obstetrics & Gynecology
DX: O75.81 Maternal exhaustion complicating labor and delivery (principal); O62.2 Other uterine inertia; Z37.0 Single live birth; O42.92 Full-term premature rupture of membranes, unspecified as to length of time between rupture and onset of labor; Z3A.40 40 weeks gestation of pregnancy; Z87.891 Personal history of nicotine dependence; O77.0 Labor and delivery complicated by meconium in amniotic fluid
CPT/HCPCS: 59025; 59050; 84112; 85025; 85027; 86850; 86900; 86901; 87426; 99218; 99251; J7120; A4216; G0378; G0463; J2405

== ENCOUNTER → 2020-09-10 15:30 | Outpatient (CLI) | payer BC, MEDICAID, SELFPAY ==
[2020-07-27 13:13] VITALS: BMI 36.9
== END ==
PROVIDERS: PCP Family Medicine; Visit Provider Obstetrics & Gynecology
DX: Z12.4 Encounter for screening for malignant neoplasm of cervix (principal)
CPT/HCPCS: 88175; G0145

== ENCOUNTER → 2021-04-24 16:24 | Outpatient (CLI) | payer BC, MEDICAID, SELFPAY ==
[2021-04-24 17:34] LABS: Progesterone Level 9.37 ng/mL (See Comment)
== END ==
PROVIDERS: PCP Family Medicine; Visit Provider Obstetrics & Gynecology
DX: N91.5 Oligomenorrhea, unspecified (principal)
CPT/HCPCS: 36415; 84144

== ENCOUNTER → 2021-04-30 06:34 | Outpatient (CLI) | payer BC, MEDICAID, SELFPAY ==
[2021-04-30 08:13] LABS: Glucose 75GTT - 30 minutes 166 mg/dL (100-160)
[2021-04-30 08:29] LABS: Glucose 75GTT - Fasting 93 mg/dL (70-99)
[2021-04-30 08:36] LABS: Glucose 75GTT - 60 minutes 194 mg/dL (100-160)
[2021-04-30 08:53] LABS: Insulin 75GTT - 30 MIN 46.1 mU/L (Not Estab.)
[2021-04-30 08:54] LABS: Insulin 75GTT - Fasting 8.9 mU/L (2.6-37.6)
[2021-04-30 10:28] LABS: Glucose 75GTT - 120 minutes 81 mg/dL (70-140)
[2021-04-30 10:30] LABS: Insulin 75GTT - 120 min 32.2 mU/L (Not Estab.)
== END ==
PROVIDERS: PCP Family Medicine; Referring Provider Obstetrics & Gynecology; Visit Provider Obstetrics & Gynecology
DX: R73.09 Other abnormal glucose (principal); Z13.1 Encounter for screening for diabetes mellitus
CPT/HCPCS: 36415; 82951; 82952; 83525

== ENCOUNTER → 2021-05-04 07:10 | Outpatient (CLI) | payer BC, MEDICAID, SELFPAY ==
[2021-05-04 08:11] LABS: Estradiol 44.5 pg/mL; Follicle Stimulating Hormone 8.7 mIU/mL; Free T3 3.1 pg/mL (2.18-3.98); Prolactin 11.5 ng/mL; T4 Free Direct 0.94 ng/dL (0.76-1.46)
[2021-05-04 09:07] LABS: T3 Total - Triiodothyronine 1.17 ng/mL (0.6-1.81)
[2021-05-10 08:01] LABS: 17-Hydroxyprogesterone 27 ng/dL (.)
[2021-05-10 12:46] LABS: Anti-Mullerian Hormone,Serum 4.29 ng/mL (.); Sex Hormone-binding Globulin 40.5 nmol/L (24.6-122.0)
== END ==
PROVIDERS: PCP Family Medicine; Referring Provider Obstetrics & Gynecology; Visit Provider Obstetrics & Gynecology
DX: E28.2 Polycystic ovarian syndrome (principal); E28.9 Ovarian dysfunction, unspecified; E03.9 Hypothyroidism, unspecified
CPT/HCPCS: 36415; 82533; 82627; 82670; 83001; 83498; 83516; 84146; 84270; 84403; 84439; 84443; 84480; 84481; 82626

== ENCOUNTER 2021-09-02 14:10 | Outpatient (CLI) | payer MEDICAID, SELFPAY ==
[2021-09-07 22:07] LABS: Chlamydia By Nucleic Acid AMP Negative (Negative)
[2021-09-08 09:14] LABS: Gonococcus By Nucleic Acid AMP Negative (Negative)
== END 2021-09-02 23:59 | disposition home or self-care (01) ==
LOC: LABSPEC 14:16
PROVIDERS: PCP Family Medicine; Visit Provider Obstetrics & Gynecology
DX: Z11.3 Encounter for screening for infections with a predominantly sexual mode of transmission (principal); Z12.4 Encounter for screening for malignant neoplasm of cervix
CPT/HCPCS: 87491; 87591; 88175; G0145

== ENCOUNTER 2021-09-23 14:02 | Outpatient (CLI) | payer MEDICAID, SELFPAY ==
[2021-09-23 15:38] LABS: Absolute Lymphocyte Count 2.09 X10^3/uL (0.83-4.51); Absolute Neutrophil Count 4.7 X10^3/uL (2.0-7.7); Basophil# 0.02 X10^3/uL; Basophil% 0.3 % (0-1); Eosinophil# 0.02 X10^3/uL; Eosinophils% 0.3 % (0-5); Hematocrit 35.5 % (37-47); Hemoglobin 11.9 g/dL (12.0-15.0); Lymphocyte # 2.09 X10^3/ul (0.83-4.51); Lymphocyte % 28.2 % (19-41); Mean Corp Hgb Conc 33.5 g/dL (32-36); Mean Corpuscular Hgb 28.5 pg (27.0-32.0); Mean Corpuscular Volume 85.1 fL (81-99); Mean Platelet Vol. 11.7 fl (6.2-12.0); Monocyte# 0.52 X10^3/uL; NRBC Flagged by Analyzer 0 % (0-5); Neutrophil # 4.74 X10^3/uL (2.7-7.7); Neutrophil % 63.9 % (47-70); Platelet Count 183 K/mm3 (150-450); RBC Distribution Width SD 43.7 fl (35.1-43.9); Red Blood Count 4.17 M/mm3 (4.2-5.4); White Blood Count 7.4 K/mm3 (4.4-11.0)
[2021-09-23 15:44] LABS: Color, Urine Yellow (Yellow); Glucose, Dipstick Normal (Normal); Ketone-Dipstick Negative (Negative); Leukocyte Esterase-Dipstick 500 /ul (Negative); Nitrite-Dipstick Negative (Negative); Occult Blood-Urine 10 /ul (Negative); Protein-Dipstick Negative (Negative); Urine Bilirubin Dipstick Negative (Negative); Urine Clarity Sl. Cloudy (Clear); Urine Urobilinogen Normal (Normal)
[2021-09-23 15:55] LABS: Thyroid Stim Hormone (TSH) 1.19 uIU/mL (0.358-3.74)
[2021-09-23 16:32] LABS: HIV - WCH Non-Reactive (Nonreactive); Hepatitis B Surface Antigen Non-Reactive (Nonreactive); Hepatitis C Antibody Non-Reactive (Nonreactive); Rubella IgG Reactive (Nonreactive); Syphilis Antibodies Non-reactive
[2021-09-23 16:43] LABS: Amphetamine Urine VISTA NEGATIVE (<1000 ng/mL); Barbiturate Urine VISTA NEGATIVE (< 200 ng/mL); Benzodiazepine Urine VISTA NEGATIVE (< 200 ng/mL); Cocaine Urine VISTA NEGATIVE (< 300 ng/mL); Ecstacy Urine VISTA NEGATIVE (< 500 ng/mL); Methadone Urine VISTA NEGATIVE (< 300 ng/mL); PCP Urine VISTA NEGATIVE (< 25 ng/mL); THC Urine VISTA NEGATIVE (< 50 ng/mL); Vista UDS pH Range 5
== END 2021-09-23 23:59 | disposition home or self-care (01) ==
LOC: WOBLAB 14:03
PROVIDERS: PCP Family Medicine; Visit Provider Obstetrics & Gynecology
DX: Z34.81 Encounter for supervision of other normal pregnancy, first trimester (principal)
CPT/HCPCS: 36415; 80307; 81002; 84443; 85025; 86703; 86762; 86780; 86803; 87077; 87086; 87088; 87340

== ENCOUNTER → 2021-12-29 | Outpatient (CLI) | payer MEDICAID, SELFPAY ==
[2021-12-29 14:17] LABS: Hematocrit 36.1 % (37-47); Hemoglobin 11.9 g/dL (12.0-15.0); Mean Corpuscular Hgb 30.1 pg (27.0-32.0); Mean Corpuscular Volume 91.2 fL (81-99); Mean Platelet Vol. 10.5 fl (6.2-12.0); Platelet Count 197 K/mm3 (150-450); RBC Distribution Width CV 13.2 % (11.6-14.6); RBC Distribution Width SD 43.9 fl (35.1-43.9); Red Blood Count 3.96 M/mm3 (4.2-5.4); White Blood Count 11.6 K/mm3 (4.4-11.0)
[2021-12-29 14:30] LABS: Glucose Challenge Gest 1H 50g 127 mg/dL (70-140)
== END | disposition home or self-care (01) ==
PROVIDERS: PCP Family Medicine; Visit Provider Student in an Organized Health Care Education/Training Program
DX: Z34.82 Encounter for supervision of other normal pregnancy, second trimester (principal)
CPT/HCPCS: 36415; 82950; 85027

== ENCOUNTER 2022-02-14 20:45 | Outpatient (CLI) | payer MEDICAID, SELFPAY ==
[2022-02-14 20:58] VITALS: BP 124/75; PULSE 83; TEMP 36.7; O2SAT 98
[2022-02-14 21:06] VITALS: BMI 30.8
[2022-02-14 21:26] LABS: Absolute Lymphocyte Count 2.48 X10^3/uL (0.83-4.51); Absolute Neutrophil Count 8.7 X10^3/uL (2.0-7.7); Basophil# 0.02 X10^3/uL; Basophil% 0.2 % (0-1); Eosinophils% 0.8 % (0-5); Hematocrit 33.9 % (37-47); Hemoglobin 11.6 g/dL (12.0-15.0); Lymphocyte # 2.48 X10^3/ul (0.83-4.51); Lymphocyte % 20.4 % (19-41); Mean Corp Hgb Conc 34.2 g/dL (32-36); Mean Corpuscular Hgb 30.4 pg (27.0-32.0); Mean Platelet Vol. 10.5 fl (6.2-12.0); Monocyte% 6.6 % (0-10); NRBC Flagged by Analyzer 0 % (0-5); Neutrophil # 8.71 X10^3/uL (2.7-7.7); Neutrophil % 71.8 % (47-70); Platelet Count 175 K/mm3 (150-450); RBC Distribution Width CV 13.2 % (11.6-14.6); Red Blood Count 3.81 M/mm3 (4.2-5.4); White Blood Count 12.1 K/mm3 (4.4-11.0)
[2022-02-14 21:28] LABS: Color, Urine Yellow (Yellow); Glucose, Dipstick Normal (Normal); Ketone-Dipstick Negative (Negative); Leukocyte Esterase-Dipstick 500 /ul (Negative); Nitrite-Dipstick Negative (Negative); Occult Blood-Urine 50 /ul (Negative); Protein-Dipstick 15 mg/dl (Negative); Urine Bilirubin Dipstick Negative (Negative); Urine Clarity Cloudy (Clear); Urine Urobilinogen Normal (Normal); Urine pH 6.5 (5.0 - 8.0)
[2022-02-14] MEDS: Lactated Ringers 1,000 ML 999 ML IV (21:55)
[2022-02-14] MEDS: Ceftriaxone 1 GM/50 ML BAG IV (22:12)
--- NOTE | 2022-02-14 22:47 | OB.TRI.HP_ITS ---
HPI - General General Date of Admission: 02/14/22 HPI Narrative DAKOTA DENSON, is a 21 F who presents with abdominal and back pain. Denies fevers chills, chest pain, shortness of breath PFSH [facility] Medical History (Updated 02/15/22 @ 07:[address] Clyde Sinclair MD) Pyelonephritis Home Medications Prenatabs FA 1 tab PO DAILY 04/30/20 [History Last Taken 02/13/22 21:00] nitrofurantoin monohydrate/macrocrystals 100 mg capsule (Macrobid) 100 mg PO DAILY 02/14/22 [History Last Taken 02/13/22 21:00] Allergy/AdvReac Type Severity Reaction Status Date / Time No Known Allergies Allergy Verified 02/14/22 21:06 Social History (Updated 05/16/18 @ 15:[address] Eliz Durán MD) Smoking Status: Former smoker History Elective abortions Hx Para 0 Spontaneous abortions Hx # Term Pregnancies Ectopic pregnancies Hx # Pregnancies Multiple births # of living children NST FHR Rate Baby A Baseline: 150 Variability:: Moderate Accelerations:: 15 x 15 Decelerations:: None Uterine Activity:: Quiet Assessment & Plan (1) : PLAN: Patient arrived with back pain and abdominal pain. Then noted urinary frequency. Urinalysis reveals signs of acute cystitis. Overall with negative fevers and chills, normal white blood cell count. 1 L LR bolus given. Along with 1 g of Rocephin. Discharge home to call office for appointment
== END 2022-02-14 23:55 | disposition home or self-care (01) ==
LOC: WPOUT 20:50 → WP 20:50
PROVIDERS: PCP Family Medicine; Visit Provider Obstetrics & Gynecology
DX: O23.10 Infections of bladder in pregnancy, unspecified trimester (principal); O99.891 Other specified diseases and conditions complicating pregnancy; N30.00 Acute cystitis without hematuria; M54.9 Dorsalgia, unspecified; R10.9 Unspecified abdominal pain; Z87.891 Personal history of nicotine dependence
CPT/HCPCS: 96365; 96366; 96367; 36415; 59025; 59050; 81002; 85025; 87086; 87088; 99218; J7120; G0378

== ENCOUNTER → 2022-03-09 | Outpatient (CLI) | payer MEDICAID, SELFPAY | END | disposition home or self-care (01) | LOC: LABSPEC 15:41 | PROVIDERS: PCP Family Medicine; Visit Provider Student in an Organized Health Care Education/Training Program | DX: Z87.440 Personal history of urinary (tract) infections (principal) | CPT/HCPCS: 87086; 87088 ==

== ENCOUNTER 2022-04-09 04:55 | Inpatient (IN) | payer MEDICAID, SELFPAY ==
[2022-04-09] VITALS (15 sets, daily range): BP systolic 98–114; BP diastolic 43–68; PULSE 61–92; RESP 16–20; TEMP 36.1–36.8; O2SAT 96–98; BMI 32.5
[2022-04-09] MEDS: Lactated Ringers 1,000 ML 999 ML IV (05:45)
[2022-04-09 06:21] LABS: Absolute Lymphocyte Count 2.24 X10^3/uL (0.83-4.51); Absolute Neutrophil Count 6.2 X10^3/uL (2.0-7.7); Basophil# 0.01 X10^3/uL; Basophil% 0.1 % (0-1); Eosinophil# 0.03 X10^3/uL; Eosinophils% 0.3 % (0-5); Hematocrit 32.8 % (37-47); Hemoglobin 11.6 g/dL (12.0-15.0); Lymphocyte # 2.24 X10^3/ul (0.83-4.51); Lymphocyte % 24.5 % (19-41); Mean Corp Hgb Conc 35.4 g/dL (32-36); Mean Corpuscular Volume 87.7 fL (81-99); Mean Platelet Vol. 10.8 fl (6.2-12.0); Monocyte# 0.64 X10^3/uL; NRBC Flagged by Analyzer 0 % (0-5); Neutrophil # 6.19 X10^3/uL (2.7-7.7); Neutrophil % 67.8 % (47-70); Platelet Count 157 K/mm3 (150-450); RBC Distribution Width CV 13.5 % (11.6-14.6); RBC Distribution Width SD 43.4 fl (35.1-43.9); Red Blood Count 3.74 M/mm3 (4.2-5.4); White Blood Count 9.1 K/mm3 (4.4-11.0)
[2022-04-09] MEDS: Acetaminophen 500 MG Tablet 1000 MG PO ×3 (06:21→18:05)
[2022-04-09] MEDS: Lactated Ringers 1,000 ML 150 ML IV ×2 (06:47→09:24)
--- NOTE | 2022-04-09 07:03 | PCM.HP.BLA ---
History and Physical Date of Admission: 04/09/22 HPI: 21-year-old G2, P1 at 39/0 weeks, MIGUE 04/16/2022 by LMP, admitted for repeat section. Denies leaking of fluid, contractions, vaginal bleeding. Reports movement. Denies headache, vision changes, chest pain or shortness of breath, nausea or vomiting, diarrhea or constipation, fevers or chills. complicated by: History of pyelonephritis on Macrobid suppression, GBS positive. [employer] history: G1: 40-week G2: Current Surgical history: section Medical history: Known history of pyelonephritis Family history: No history of blood clots or bleeding disorders Social history: Former tobacco user, denies alcohol or drug use Allergies: No known drug allergies Medications: 1. vitamin 2. Macrobid Review of system: Negative otherwise stated above Physical exam: BP 114/68, heart rate 76, respiratory rate 20, temp 98.2 ?F, O2 sat duration 96% on room air General: No acute distress HEENT: Normocephalic/atraumatic Cardiorespiratory: No increased effort Abdomen: Soft, nontender, gravid Extremities: Minimal edema Neurologic: Cranial nerves II through XII grossly intact Musculoskeletal: Strength out of 5 throughout all extremities FHR: 145/mod kayleigh/+accel/no decel [place]: quiet Panel GBS pos HIV/hepatitis B/hepatitis C all negative Gonorrhea/chlamydia negative Syphilis negative Assessment/plan: 21-year-old G2, P1 at 39/0 weeks, MIGUE 04/16/2022 by LMP, admitted for repeat section. complicated by: History of pyelonephritis on Macrobid suppression, GBS positive. 2 g Ancef preop All risk, benefits, alternatives discussed with patient: Risk include but are not limited to: Risk bleeding twin transfusion, infection, injury to surrounding tissue including bowel/bladder requiring prolonged Shields catheter use, VTE, ICU admission. Patient aware and consented.
--- NOTE | 2022-04-09 07:09 | EX.PCM.OBRPT ---
Maternal Data Information Final MIGUE: 04/16/22 Details Operative Information Date of Procedure: 04/09/22 Pre-Operative Diagnosis: Berman intrauterine at term Post-Operative Diagnosis: Berman intrauterine at term Indications for : Repeat Elective Classification: Scheduled Procedure Type: low transverse Type of Anesthesia: Spinal Estimated Blood Loss: 700cc Fluids Replaced: 750cc Findings Description of Procedure: Indications/risk/benefits: 21-year-old G2, P1 at 39/0 weeks, MIGUE 04/16/2022 by LMP, admitted for repeat section. All risk, benefits, alternatives discussed with patient: Risk include but are not limited to: Risk bleeding twin transfusion, infection, injury to surrounding tissue including bowel/bladder requiring prolonged Shields catheter use, VTE, ICU admission. Patient aware and consented. Procedure: Patient taken to the operating room spinal anesthesia placed. Patient placed in the supine position with a left lateral tilt. Prepped and draped in usual sterile fashion. Pfannenstiel skin incision made with scalpel and carried down through subcutaneous tissue. Noting some thickened scar tissue. Fascia nicked on either side of the midline and extended bilaterally with Suresh scissors. Nataly clamps placed at the superior fascial edge which was tented up and underlying rectus muscles were dissected off bluntly and sharply at midline using Suresh scissors and Bovie. Nataly clamps moved to inferior fascial edge which was tented up and underlying rectus muscles were dissected off bluntly and sharply at midline using Suresh scissors. Hemostats used superiorly to separate rectus muscles. Peritoneum entered. Entry extended bluntly. Bladder blade placed. Low transverse uterine incision made with scalpel and extended bluntly. Meconium fluid on amniotomy. Hand placed into the uterus and had elevated to the level of the hysterotomy. Bladder blade removed. Head delivered followed by body with the use of gentle fundal pressure. No nuchal cord. Cord clamped and cut. Baby handed to nursing. Manual extraction of placenta. Uterus exteriorized and cleared of all clots. Hysterotomy closed with a run locking stitch followed by a second imbricating stitch. Hemostatic with additional [id number] at right angle. Uterus replaced into the abdominal cavity. Hemostasis confirmed, Nadira placed. Small area of omental adhesion noted to peritoneum on right side of abdominal opening. Muscles reapproximated with horizontal mattress suture. Remainder of Nadira placed on rectus muscle, hemostatic. Fascia closed with a running stitch. Irrigation completed. Subcuticular tissue closed with suture. Skin closed with a running subcuticular stitch. At the end of the procedure all needle, lap, sponge counts were correct. UOP: 300cc Infant A Gender: Female (1 minute): 9 (5 minute): 9 Complications Complications: None.
[2022-04-09] MEDS: Sodium Citrate/Citric Acid 30 ML UDC PO (07:14)
[2022-04-09] MEDS: Cefazolin 2 GM in 0.9% Normal Saline 100 ML IV (07:50)
[2022-04-09] MEDS: Ketorolac 30 MG/ML Syringe IV ×3 (09:25→21:08)
[2022-04-09] MEDS: Enoxaparin 40 MG/0.4 ML Syringe SC (21:09)
[2022-04-09] MEDS: 0.9% Saline Lock 10 ML Syringe IV (21:09)
[2022-04-10 00:05] VITALS: BP 100/50; PULSE 72; RESP 15; TEMP 36.3; O2SAT 97
[2022-04-10] MEDS: Acetaminophen 500 MG Tablet 1000 MG PO ×4 (00:10→19:34)
--- NOTE | 2022-04-10 03:09 | NURSING ---
at 0030, pt called out that he IV ripped out and this RN reported to room and pt wasn't quite sure how it happened but IV was completely out of the pts skin. Pt requested to not be poked again for another IV just for one more dose of toradol. Pt instead will receive motrin early in replace of last dose of toradol.
[2022-04-10] MEDS: Ibuprofen 600 MG Tablet PO ×4 (03:21→23:19)
[2022-04-10 04:15] VITALS: BP 121/52; PULSE 89; RESP 16; TEMP 36.2; O2SAT 99
[2022-04-10 04:35] LABS: Hematocrit 31.6 % (37-47); Hemoglobin 10.6 g/dL (12.0-15.0); Mean Corp Hgb Conc 33.5 g/dL (32-36); Mean Corpuscular Hgb 30.6 pg (27.0-32.0); Mean Corpuscular Volume 91.3 fL (81-99); Mean Platelet Vol. 10.5 fl (6.2-12.0); Platelet Count 137 K/mm3 (150-450); RBC Distribution Width CV 13.7 % (11.6-14.6); RBC Distribution Width SD 45.3 fl (35.1-43.9); Red Blood Count 3.46 M/mm3 (4.2-5.4); White Blood Count 10.3 K/mm3 (4.4-11.0)
--- NOTE | 2022-04-10 07:38 | PCM.PN.OB ---
Subjective Subjective No overnight complaints. Pain well controlled Objective Data Objective Data Vital Signs: Vital Signs Temp Pulse Resp BP Pulse Ox O2 Del Method 97.2 F L 89 16 121/52 H 99 Room Air 04/10/22 04:15 04/10/22 04:15 04/10/22 04:15 04/10/22 04:15 04/10/22 04:15 04/10/22 04:15 Oxygen Delivery Method Room Air Weight: 213 lb 12.8 oz Body Mass Index (BMI) 32.5 Intake & Output: Intake and Output for Last 24 Hours 04/08/22 04/09/22 04/10/22 23:59 23:59 23:59 Intake Total 2702.5 / 2702.5 Output Total 1750 / 1750 350 / 350 Balance 952.5 / 952.5 -350 / -350 Lab / Micro Data Result Diagrams: 04/10/22 04:27 Labs: Laboratory Results - last 24 hr 04/10/22 04:27: WBC 10.3, RBC 3.46 L, Hgb 10.6 L, Hct 31.6 L, MCV 91.3, MCH 30.6, MCHC 33.5 D, RDW Std Deviation 45.3 H, RDW Coeff of [place] 13.7, Plt Count 137 L, MPV 10.5 Micro: Microbiology 04/09/22 05:55 Nasal Secretion SARS-CoV-2 Antigen (Rapid) - Final Physical Exam Const alert, oriented x3, no apparent distress, average body habitus, healthy appearing and well nourished HEENT normocephalic and moist oral mucous membranes Eyes PERRL Neck full ROM Resp normal respiratory effort, no retractions and no use of accessory muscles GI GI Narrative: Soft, nontender, uterus firm and below umbilicus. Bandage clean dry and intact Extremity normal to inspection, full ROM and no clubbing, cyanosis or edema Neuro moves all extremities and no focal motor deficits Psych mental status grossly normal, affect normal, speech normal and activity/motor behavior normal Assessment & Plan (1) delivery delivered: PLAN: Postop day 1. Breast-feeding. Pain well controlled. Likely home tomorrow
[2022-04-10 10:00] VITALS: BP 121/51; PULSE 96; RESP 16; TEMP 36.6; O2SAT 100
[2022-04-10] MEDS: Senna/Docusate Sodium 1 Tablet PO (11:16)
[2022-04-10] MEDS: Enoxaparin 40 MG/0.4 ML Syringe SC (11:16)
[2022-04-10 15:45] VITALS: BP 119/70; PULSE 81; RESP 14; TEMP 36.6; O2SAT 99
[2022-04-10 20:09] VITALS: BP 109/72; PULSE 66; RESP 16; TEMP 36.1; O2SAT 99
[2022-04-11] MEDS: Acetaminophen 500 MG Tablet 1000 MG PO ×2 (02:10→08:56)
[2022-04-11 02:13] VITALS: BP 104/47; PULSE 69; RESP 16; TEMP 36.6
[2022-04-11] MEDS: Ibuprofen 600 MG Tablet PO ×2 (05:42→11:07)
[2022-04-11] MEDS: Senna/Docusate Sodium 1 Tablet PO (08:57)
[2022-04-11] MEDS: Enoxaparin 40 MG/0.4 ML Syringe SC (08:57)
[2022-04-11 09:03] VITALS: BP 110/60; PULSE 82; RESP 16; TEMP 36.1; O2SAT 99
--- NOTE | 2022-04-11 10:06 | PCM.DC.BLA ---
Discharge Summary Date of Admission: 04/09/22 Date of Discharge: 04/11/22 Summary: Patient arrived on 04/09/2022 for scheduled repeat section at term. Repeat section on 04/09/2022. Routine postoperative recovery. Discharge home on 04/11/2022 Meaningful Use Info Meaningful Use Diagnoses (Choose all that apply): None applicable Discharge Plan Admission Admit Date/Time: 04/09/22 04:55 Primary Reason for Your Visit: section Attending Provider: Sara Sinclair Primary Care Provider: Eleazar Atwood Instructions Additional Instructions / Restrictions: Regular diet. No lifting over 25 pounds for 2 to 3 weeks. Okay to shower. No tub baths for 2 weeks. No intercourse for 4 to 6 weeks. Call if fevers, chills, chest pain, shortness of breath. Follow-up 2 weeks postoperatively Discharge Orders/Prescriptions Prescriptions: New oxycodone 5 mg tablet 5 mg PO Q6H PRN (Reason: pain (scale score 7-10)) 4 Days Qty: 20 0RF Discontinued Prenatabs FA 1 tab PO DAILY nitrofurantoin monohyd/m-cryst [Macrobid] 100 mg Capsule 100 mg PO DAILY Rx Instructions: must administer with a meal/food Referrals / Follow Up: Eleazar Atwood MD [Primary Care Provider] - Disposition Disposition (needs filled in before D/C Order can be placed): Home, Self Care
--- NOTE | 2022-04-11 10:06 | PCM.PN.OB ---
Subjective Subjective No overnight complaint Objective Data Objective Data Vital Signs: Vital Signs Temp Pulse Resp BP Pulse Ox O2 Del Method 97.0 F L 82 16 110/60 99 Room Air 04/11/22 09:03 04/11/22 09:03 04/11/22 09:03 04/11/22 09:03 04/11/22 09:03 04/11/22 09:03 Oxygen Delivery Method Room Air Weight: 213 lb 12.8 oz Body Mass Index (BMI) 32.5 Intake & Output: Intake and Output for Last 24 Hours 04/09/22 04/10/22 04/11/22 23:59 23:59 23:59 Intake Total 2702.5 / 2702.5 Output Total 1750 / 1750 350 / 350 Balance 952.5 / 952.5 -350 / -350 Lab / Micro Data Result Diagrams: 04/10/22 04:27 Micro: Microbiology 04/09/22 05:55 Nasal Secretion SARS-CoV-2 Antigen (Rapid) - Final Physical Exam Const alert, oriented x3, no apparent distress, average body habitus, healthy appearing and well nourished HEENT normocephalic and moist oral mucous membranes Eyes PERRL Neck full ROM Resp normal respiratory effort and no retractions Extremity normal to inspection, full ROM and no clubbing, cyanosis or edema Neuro moves all extremities and no focal motor deficits Psych mental status grossly normal, affect normal, speech normal and activity/motor behavior normal Assessment & Plan (1) delivery delivered: PLAN: Postop day 2 status post repeat section. Pain well controlled. Breast-feeding. Okay to discharge home today
[2022-04-11] MEDS: FLU VACC QS2022-23(6MOS UP)/PF 60 MCG/0.5 ML SYRINGE IM (10:23)
== END 2022-04-11 11:10 | disposition home or self-care (01) | DRG 540 ==
PROVIDERS: Admitting Provider Student in an Organized Health Care Education/Training Program; PCP Family Medicine; Referring Provider Student in an Organized Health Care Education/Training Program; Visit Provider Student in an Organized Health Care Education/Training Program
PROC: 10D00Z1 Extraction of Products of Conception, Low, Open Approach (ICD-10-PCS; CPT 59514; principal; 2022-04-09 07:15)
DX: O34.219 Maternal care for unspecified type scar from previous cesarean delivery (principal); O99.824 Streptococcus B carrier state complicating childbirth; Z37.0 Single live birth; Z23 Encounter for immunization; Z3A.39 39 weeks gestation of pregnancy; Z87.891 Personal history of nicotine dependence
CPT/HCPCS: 59025; 85025; 85027; 86850; 86900; 86901; 87811; 99218; 99251; J7120; 90686; A4216; G0378; G0463; J2405

== ENCOUNTER 2022-10-13 21:53 | Emergency (ER) | payer MEDICAID, SELFPAY ==
[2022-10-13 21:54] VITALS: BP 112/77; PULSE 83; RESP 16; TEMP 36.7; O2SAT 98; BMI 25.0
--- NOTE | 2022-10-13 22:00 | RAD_ITS ---
INDICATION: Chest pain EXAMINATION/TECHNIQUE: X-RAY - XR Chest 1 View COMPARISON: None FINDINGS: LINES/DEVICES: None. LUNGS: No consolidation, edema or effusion. No pneumothorax. MEDIASTINUM AND CARDIOVASCULAR STRUCTURES: Cardiac silhouette not enlarged. Central airways and mediastinal contour are unremarkable. RAD/Chest 1 View (Portable) IMPRESSION: No radiographic evidence of acute cardiopulmonary disease. Electronically Signed: Zay Harris MD at 22:18 EDT ,
[2022-10-13 22:57] LABS: Absolute Lymphocyte Count 2.22 X10^3/uL (0.83-4.51); Absolute Neutrophil Count 4.4 X10^3/uL (2.0-7.7); Basophil# 0.02 X10^3/uL; Basophil% 0.3 % (0-1); Eosinophil# 0.03 X10^3/uL; Eosinophils% 0.4 % (0-5); Hematocrit 37.3 % (37-47); Hemoglobin 12.2 g/dL (12.0-15.0); Lymphocyte # 2.22 X10^3/ul (0.83-4.51); Mean Corp Hgb Conc 32.7 g/dL (32-36); Mean Corpuscular Hgb 28.4 pg (27.0-32.0); Mean Corpuscular Volume 86.7 fL (81-99); Mean Platelet Vol. 10.6 fl (6.2-12.0); Monocyte# 0.49 X10^3/uL; Monocyte% 6.9 % (0-10); NRBC Flagged by Analyzer 0 % (0-5); Neutrophil # 4.37 X10^3/uL (2.7-7.7); Neutrophil % 61.1 % (47-70); Platelet Count 231 K/mm3 (150-450); RBC Distribution Width CV 13.1 % (11.6-14.6); RBC Distribution Width SD 41.1 fl (35.1-43.9); White Blood Count 7.2 K/mm3 (4.4-11.0)
--- NOTE | 2022-10-13 23:03 | EDS_ITS ---
HPI History of Present Illness Chief Complaint: Chest Pain Informant: patient and parent (Mother) Onset/Context/Timing Onset: Days (3) Activity at onset: gradual and onset Timing: Continuous (Has not gone away x3 days) Quality: Positive for Heaviness Location: Substernal (Diffuse anterior chest, some radiation into back and neck, no arm discomfort) Current Severity: Moderate Maximum Severity: Moderate Worsened By: Nothing Relieved By: Nothing Associated Symptoms: Negative for Nausea, Vomiting, Diaphoresis, Dyspnea, Cough, Fever or Lightheadedness Narrative Narrative: Constant discomfort for the past 3 days, she states she is having some trouble swallowing. She states it feels like her throat is swollen, like when you already have strep throat, but she has no painful swallowing. No illnesses. Lying down versus sitting up versus exertion versus deep breathing, none of that changes of the discomfort makes it worse or better. Eating does not necessarily make it worse, but is difficult. She has tried no medications for any of this. She has some occasional palpitations, she has had this before but they are more prominent today. She denies any leg pain or swelling, travel out of the area recently, history of blood clots in herself or others in the family. No history of heart problems that she knows of. With regards to GI issues, she has had bright red blood per rectum and mucus off-and-on for the past 6 months or so in addition to often switching back and forth from diarrhea to constipation. Has a bowel movement about once every 5 days. Has never had a colonoscopy but has an appointment with GI within this next month to have this evaluated further. [facility] Medical History Alternating constipation and diarrhea History of premature rupture of membranes (PPROM) Postprandial nausea Pre-diabetes Pyelonephritis Home Medications oxycodone 5 mg tablet 5 mg PO Q6H PRN pain (scale score 7-10) 4 days #20 tabs 04/09/22 [Rx Last Taken Unknown] norethindrone (contraceptive) 0.35 mg tablet 0.35 mg PO DAILY 08/18/22 [History Last Taken Unknown] pantoprazole 40 mg tablet,delayed release 40 mg PO DAILY #30 tabs 10/14/22 [Rx Last Taken Unknown] Allergy/AdvReac Type Severity Reaction Status Date / Time anthrax vaccine Allergy Intermediate Swelling Verified 10/13/22 21:56 Surgical History Previous section [place] teeth removed Social History Smoking Status: Never smoker alcohol intake: never ROS ROS ED Constitutional Constitutional ED: Denies chills or fever(s) Eyes Eyes: Denies change in vision or diplopia ENT ENT ED: Denies rhinorrhea or sore throat Cardiovascular Cardiovascular: Reports chest pain and palpitations Respiratory/Chest Respiratory/Chest: Denies cough or dyspnea Gastrointestinal Gastrointestinal: Reports abdominal pain, constipation, diarrhea and rectal bleeding; Denies melena, nausea or vomiting Genitourinary Genitourinary ED: Denies dysuria or hematuria Musculoskeletal Musculoskeletal: Denies back pain or neck pain Integumentary Denies abscess or rash Neurologic Neurologic: Denies headache(s), paresthesias or weakness Psychiatric Psychiatric: Denies anxiety or suicidal thoughts EXAM Physical Exam Const Vital Signs: 10/13/22 21:54 10/13/22 22:46 Temperature 98.0 F Temperature Source Temporal Pulse Rate 83 Respiratory Rate 16 Blood Pressure 112/77 Blood Pressure Mean 88 Pulse Ox 98 Oxygen Delivery Method Room Air Room Air Positive well nourished and well developed General Appearance ED: well developed and NAD HEENT Reports moist mucous membranes normocephalic and atraumatic Eyes PERRL and EOMs intact bilaterally Neck full ROM and supple Resp normal respiratory effort and clear to auscultation bilaterally Cardio regular rate, regular rhythm and no murmurs Rate: other Other Details: Occasional irregularity coinciding with PVC on monitor. No tachycardia. GI non-distended GI Narrative: Tender epigastrium no guarding or rebound tenderness. Otherwise abdomen benign. Auscultation: normoactive bowel sounds Palpation: soft Back/Spine no CVA tenderness General Back: other FROM Extremity normal to inspection General Extremety ED: Negative for edema, pulses abnormal or tenderness General Extremity: Negative for edema or pulses abnormal Neuro oriented x3, CN's II-XII intact bilaterally and no sensory deficits noted Sensorium / Orientation: awake and alert Motor Exam: strength 5/5 throughout Psych mental status grossly normal Skin no rashes or lesions noted and no wounds MDM MDM MDM Narrative Medical decision making narrative: Other than PVCs patient did not have any other events or dysrhythmias here. Her cardiac work-up is normal as expected and her one-view chest x-ray is normal on my interpretation without any signs of blood mediastinum or infiltrates, I have a high suspicion this is GI-related. She was given a GI cocktail and dicyclomine while we finished the work-up. I am also concerned about her lower GI symptoms. I recommend GI follow-up, she already has an appointment. I think she will probably need a colonoscopy for those symptoms. For now we will place her on a PPI. We discussed reasons to return here to the ER. Lab Data Attestation: I reviewed the patient's lab results. Labs: Laboratory Results - last 24 hr 10/13/22 10/13/22 22:50 22:50 WBC 7.2 RBC 4.30 Hgb 12.2 Hct 37.3 MCV 86.7 MCH 28.4 MCHC 32.7 RDW Std Deviation 41.1 RDW Coeff of [place] 13.1 Plt Count 231 MPV 10.6 Immature Gran % (Auto) 0.300 Neut % (Auto) 61.1 Lymph % (Auto) 31.0 [facility] % (Auto) 6.9 Eos % (Auto) 0.4 Baso % (Auto) 0.3 Absolute Neuts (auto) 4.4 Absolute Lymphs (auto) 2.22 Nucleated RBC % 0 Sodium 145 Potassium 3.6 Chloride 109 H Carbon Dioxide 26.0 Anion Gap 10 BUN 14 Creatinine 0.81 Estim Creat Clear Calc 108.97 Est GFR (MDRD) Af Amer 113 Est GFR (MDRD) Non-Af 93 BUN/Creatinine Ratio 17.3 Glucose 121 H Calcium 9.3 Troponin I High Sens < 3 L Radiography Diagnostic Testing: Clinical Impression(s) from Imaging Studies Chest X-Ray 10/13/22 22:00 IMPRESSION: No radiographic evidence of acute cardiopulmonary disease. Electronically Signed: Zay Harris MD at 22:18 EDT , Rhythm Strip Rhythm Strip: Sinus Rhythm Rate: 75 Ectopy: PVC(s) EKG Initial EKG: Attestation: I personally reviewed and interpreted this EKG as follows: Interpretation: Sinus Rhythm and No Acute Injury Pattern Comments: Normal EKG Discharge Plan Triage Chief Complaint: Chest Pain ED Provider: Reji Goncalves Dx/Rx/DC Orders Clinical Impression: Chest pain, Intermittent abdominal pain, Hematochezia, Symptomatic PVCs Instructions: PVCs, ED Chest Pain, Uncertain Cause Prescriptions: New pantoprazole 40 mg tablet,delayed release (DR/EC) 40 mg PO DAILY Qty: 30 0RF No Action norethindrone (contraceptive) 0.35 mg tablet 0.35 mg PO DAILY oxycodone 5 mg tablet 5 mg PO Q6H PRN (Reason: pain (scale score 7-10)) 4 Days Qty: 20 0RF Primary Care Provider: Eleazar Atwood Referrals: Eleazar Atwood MD [Primary Care Provider] - 1 Week Friend,DO Otto [Med Staff - Active Staff] - As soon as possible Disposition Disposition: Home, Self Care
[2022-10-13] MEDS: Dicyclomine 10 MG Capsule 20 MG PO (23:11)
[2022-10-13] MEDS: Mag Hydrox/Al Hydrox/Simeth 30 ML UDC PO (23:11)
[2022-10-13 23:17] LABS: Anion Gap 10 (5-15); BUN 14 mg/dL (7-18); BUN/Creat Ratio 17.3 RATIO (10-20); Calcium,Total 9.3 mg/dL (8.5-10.1); Chloride 109 mmol/L (98-107); Creatinine, Serum 0.81 mg/dL (0.55-1.02); EST Glomerular Filtration Rate 93 mL/min (>60); Est Glom Filt Rate - Afr Amer 113 mL/min (>60); Estimated Creatinine Clearance 108.97 ml/min; Glucose 121 mg/dL (74-106); Potassium 3.6 mmol/L (3.5-5.1); Sodium Level 145 mmol/L (136-145); Troponin-I HS (w/2H Reflex) < 3 pg/mL (3.0-54.0)
[2022-10-14 00:20] VITALS: PULSE 70
== END 2022-10-14 00:30 | disposition home or self-care (01) ==
PROVIDERS: Emergency Provider Emergency Medicine; PCP Family Medicine; Visit Provider Emergency Medicine
DX: R07.9 Chest pain, unspecified (principal); R10.9 Unspecified abdominal pain; K92.1 Melena; I49.3 Ventricular premature depolarization; R42 Dizziness and giddiness; R00.2 Palpitations
CPT/HCPCS: 36415; 71045; 80048; 83036; 84439; 84443; 84484; 85025; 85027; 93005; 99283; A4216

== ENCOUNTER → 2022-10-13 | Outpatient (CLI) | payer MEDICAID, SELFPAY ==
[2022-10-13 13:41] LABS: Hematocrit 37.8 % (37-47); Hemoglobin 12.1 g/dL (12.0-15.0); Mean Corpuscular Hgb 27.9 pg (27.0-32.0); Mean Corpuscular Volume 87.1 fL (81-99); Mean Platelet Vol. 10.5 fl (6.2-12.0); Platelet Count 223 K/mm3 (150-450); Red Blood Count 4.34 M/mm3 (4.2-5.4); White Blood Count 4.7 K/mm3 (4.4-11.0)
[2022-10-13 14:04] LABS: Hemoglobin A1c 4.9 % (3.8-5.6)
[2022-10-13 14:41] LABS: T4 Free Direct 1.08 ng/dL (0.76-1.46)
== END | disposition home or self-care (01) ==
PROVIDERS: PCP Family Medicine; Visit Provider Student in an Organized Health Care Education/Training Program
DX: R42 Dizziness and giddiness (principal)
CPT/HCPCS: 83036; 84443; 84439; 85027; 36415

== ENCOUNTER 2023-04-21 12:40 | Day surgery (SDC) | payer MEDICAID, SELFPAY ==
--- NOTE | 2023-04-05 12:58 | PCM.HP.BLA ---
History and Physical Date of Admission: 04/21/23 HPI: The patient is a 22 year old female presenting for pre-operative visit. She is scheduled for Hysteroscopy D&C, for AUB, placental nodule on 04/21/23. Procedure discussed along with risks, benefits and complications. Other alternatives discussed for management. Consent form signed? Yes. ? ? PAST MEDICAL HISTORY PAST MEDICAL HISTORY Diagnosis Date ? NEGATIVE MEDICAL HISTORY ? ? ? PAST SURGICAL HISTORY PAST SURGICAL HISTORY Procedure Laterality Date ? SECTION HX ? ? ? x2 ? COLONOSCOPY SCREENING ? 12/2022 ? IBS ? ? ? CURRENT MEDICATIONS Current Outpatient Medications Medication Sig Dispense Refill ? Lavender Oil oil Lavella- lavender pill ? ? ? No current facility-administered medications for this visit. ? ? ALLERGIES: Anthrax Vaccine ? PERSONAL HISTORY: SOCIAL HISTORY Social History ? Tobacco Use ? Smoking status: Never ? Smokeless tobacco: Never Vaping Use ? Vaping Use: Never used Substance Use Topics ? Alcohol use: No ? Drug use: No ? FAMILY HISTORY: FAMILY HISTORY History reviewed. No pertinent family history. ? REVIEW OF SYMPTOMS: GENERAL: denies fevers or chills ENDOCRINOLOGY: has not been on steroids Cardiology : denies palpitations or chest pain Respiratory: denies SOB or cough Hematology: denies history of prolonged bleeding or easy bruising or VTE Allergy: Denies history of personal or family history of allergy to anesthesia ? PHYSICAL EXAMINATION: ? VITALS: Blood pressure 96/58, pulse 64, resp. rate 16, height 5' 8 (1.727 m), weight 151 lb (68.5 kg), last menstrual period 03/15/2023, not currently . ? GENERAL: awake, alert, NAD NECK: Supple. No lynphadenopathy, normal thyroid, no thyromegaly. LUNGS: Clear to auscultation bilaterally. no wheezes, rhonchi or rales HEART: Regular rate and rhythm, Normal heart sounds, and No murmurs or gallops ? IMPRESSION: AUB, placental nodule ? PLAN: The risks/benefits/alternatives and personal involved for the planned hsyteroscopy D&C were reviewed with the patient. Her questions were answered to her satisfaction and she desires to proceed. Consent was signed. I reviewed with her postop instructions and expectations. ? ? I have reviewed and updated past medical and surgical history, medications and allergies Assessment & Plan Assessment/Plan (1) Abnormal uterine bleeding (AUB): (2) Placental site nodule:
[2023-04-21] VITALS (7 sets, daily range): BP systolic 94–102; BP diastolic 53–71; PULSE 56–73; RESP 14–16; TEMP 36.1–36.8; O2SAT 97–100; BMI 22.4
--- NOTE | 2023-04-21 | EMB_PTH ---
PATIENT: DAKOTA DENSON LOC: [facility] – [place] U#:[id number] AGE/SX: ROOM: RE04/21/[address]: Dr. Arabella Cheek MD : 2000 BED: DIS: 04/21/2023 SPEC #: [id number] RECD: 04/21/23 15:50 STATUS: BABS REBaltazar #: [id number] AGNES: 04/21/23 00:[address]: Arabella Cheek DEPT: SURGICAL PATHOLOGY RECD BY: Franki Elaine ENTERED: 04/22/23 08:58 SP TYPE: ENDOM BX/C OTHR DR: Dr. Eleazar Atwood MD Tissues: Endometrium, NOS Procedures: Surgery Specimen Level IV HEADER OPERATION: Hysteroscopy, Dilation and Curettage with Symphion PRE-OP DIAGNOSIS: Abnormal uterine bleeding, placental site nodule TISSUE SUBMITTED: Endometrial curettings MICROSCOPIC DIAGNOSIS Endometrium, curettings: Proliferative endometrium. Focal decidualized tissue with breakdown. AM:janay 04/26/2023 MICROSCOPIC DESCRIPTION Slides are reviewed. GROSS DESCRIPTION Received in fixative is one container labeled with the patient's name and designated endometrial curettings. The specimen consists of multiple irregular fragments of [place]-brown soft tissue that in aggregate measure 2.5 x 2.0 x 0.2 cm. The specimen is totally submitted in one cassette. / SJ:janay 04/22/2023 TC:5 CPT: 25088
[2023-04-21 13:17] LABS: Internal QC Validated? YES +Cl - CLEAR BKGD; Pregnancy, Urine Negative Negative
[2023-04-21] MEDS: Acetaminophen 500 MG Tablet 1000 MG PO (13:23)
[2023-04-21] MEDS: Ketorolac 30 MG/ML Syringe IV (13:23)
[2023-04-21 13:24] LABS: Hematocrit 36.1 % (37-47); Hemoglobin 11.8 g/dL (12.0-15.0); Mean Corp Hgb Conc 32.7 g/dL (32-36); Mean Corpuscular Hgb 28.5 pg (27.0-32.0); Mean Corpuscular Volume 87.2 fL (81-99); Mean Platelet Vol. 10.7 fl (6.2-12.0); Platelet Count 206 K/mm3 (150-450); RBC Distribution Width CV 13.9 % (11.6-14.6); RBC Distribution Width SD 44.2 fl (35.1-43.9); Red Blood Count 4.14 M/mm3 (4.2-5.4); White Blood Count 4.8 K/mm3 (4.4-11.0)
[2023-04-21] MEDS: Lactated Ringers 1,000 ML 15 ML IV (13:27)
[2023-04-21] MEDS: Lidocaine 1% /Epi 1:100 (20ml) 20 ML Vial ×2 (14:41→15:01)
--- NOTE | 2023-04-21 14:50 | DCINST_ITS ---
Discharge Instructions Diet Discharge Diet: No restrictions Activity Return to work on:: 04/25/23 May resume sexual activity in: 1 week Lifting Restrictions: none Dressing / Incision Call your doctor if your incision/area has: Sudden Increased Bleeding and Foul Smelling Discharge Call your doctor if you observe: Fever of 101 or Higher and Using more than 1 pad per hour (for 2 hrs in a row) Follow Up Care Please Follow Up With: Araeblla Cheek MD When: You do not need a postop appointment. We will contact you next week with your pathology results. Call [phone] to make an appointment or with any concerns or send a [employer] message for nonurgent questions. Test Results: Test results from this visit will be discussed in further detail at your follow- up appointment, if applicable. Discharge Plan Admission Primary Reason for Your Visit: Hysteroscopy Dilation and Curettage Attending Provider: Arabella Cheek Primary Care Provider: Eleazar Atwood Discharge Orders/Prescriptions Prescriptions: No Action labella 1 tab PO DAILY Referrals / Follow Up: Eleazar Atwood MD [Primary Care Provider] - Disposition Disposition (needs filled in before D/C Order can be placed): Home, Self Care
--- NOTE | 2023-04-21 14:52 | OP.PCM_ITS ---
Problems Associated Problem List Diagnoses (1) Placental site nodule: (2) Abnormal uterine bleeding (AUB): Report of Operation Date of Procedure: 04/21/23 Pre-Operative Diagnosis: Placental site nodule and abnormal uterine bleeding Post-Operative Diagnosis: Same Surgery/Procedure Performed:: Hysteroscopy D&C Description of Surgical Findings:: Normal cervix and vagina. Normal endometrial cavity, both tubal ostia identified. Somewhat ragged endometrium but no focal findings. Surgeon: Arabella Cheek enterprise application analyst: Nakita Chen [id number] Type of Anesthesia: MAC/Supplemental/Local Anesthesiologist: Patricia Salinas Special Medications: none Specimen's removed: endometrial curettings Drains: none Estimated Blood Loss (mL): 10 Fluids Replaced: 600 Description of Procedure: The patient was taken to the OR where she was prepped and draped in dorsal lithotomy position. The weighted speculum was placed in the vagina and the anterior lip of the cervix was grasped with a single-tooth tenaculum. A paracervical block was administered with [1% lidocaine with 1-100,000 epinephrine solution]. The cervix was dilated serially with Hegar dilators. The Symphion hysteroscope was placed into the uterine cavity and the above findings were noted. Bilateral tubal ostia [were] identified. There is some ragged endometrium, no discrete polypoid or other lesions. The symphion resection device was inserted and a visual curettage done of the endometrial cavity. The instruments were then removed from the cervix and vagina. A vaginal sweep was completed by me. Sponge and needle counts were correct. Patient was taken to recovery room in stable condition. Calculated hysteroscopic fluid deficit was 550 cc of normal saline. Grafts/Implants Used: none Procedure Start Time: 14:59 Procedure Stop Time: 15:08 Complications none Admit VTE Documentation VTE Present on Admission: No VTE Mechan Device Prophylaxis: SCD's VTE Pharm Prophylaxis ordered?: No Reason prophylaxis not ordered:: Procedure Not Indicated
== END 2023-04-21 16:24 | disposition home or self-care (01) ==
LOC: SDC 12:41 → AC 12:42
PROVIDERS: PCP Family Medicine; Referring Provider Obstetrics & Gynecology; Visit Provider Obstetrics & Gynecology
PROC: 0UDB8ZZ Extraction of Endometrium, Via Natural or Artificial Opening Endoscopic (ICD-10-PCS; CPT 58558; principal; 2023-04-21 14:30)
DX: N93.9 Abnormal uterine and vaginal bleeding, unspecified (principal)
CPT/HCPCS: 58558; 00952; 81025; 85027; 88305; J7120; J2405